=== PATIENT | male | born 1950 | race Caucasian/White ===

== ENCOUNTER 2020-05-01 01:53 | Outpatient (CLI) | payer MEDICARE, SELFPAY ==
[2020-05-01 18:35] LABS: SARS-CoV-2 RNA PCR Negative
== END 2020-05-01 01:54 | disposition home or self-care (01) ==
LOC: ANHCOVIDDT 01:53
PROVIDERS: PCP Internal Medicine; Visit Provider Internal Medicine Cardiovascular Disease
DX: Z01.812 Encounter for preprocedural laboratory examination (principal); Z20.828 Contact with and (suspected) exposure to other viral communicable diseases
CPT/HCPCS: 87635; C9803; U0003

== ENCOUNTER 2020-05-04 05:23 | Day surgery (SDC) | payer MEDICARE, SELFPAY ==
[2020-05-03 15:50] VITALS: BMI 28.1
[2020-05-04] VITALS (25 sets, daily range): BP systolic 101–163; BP diastolic 54–86; PULSE 53–69; RESP 11–19; TEMP 36.1–36.4; O2SAT 91–100; BMI 28.5
[2020-05-04 07:56] LABS: Basophils Absolute Auto 0.1 K/mm3 (0.0-0.1); Basophils Percent Auto 0.7 % (0.2-1.2); Eosinophils Absolute Auto 0.3 K/mm3 (0-0.3); Eosinophils Percent Auto 4.1 % (0-4.4); Hemoglobin 14.7 g/dL (14.0-18.0); Immature Granulocyte Absolute 0.04 K/mm3 (0.00-0.031); Immature Granulocyte Percent A 0.6 % (0-0.5); Lymphocytes Absolute Auto 2.29 K/mm3 (0.9-3.2); Lymphocytes Percent Auto 33.5 % (18.3-44.2); Mean Corpuscular HGB Conc 33.4 g/dl (32-36); Mean Corpuscular Hemoglobin 30.6 pg (26-34); Mean Corpuscular Volume 91.7 fl (80-100); Mean Platelet Volume 12.2 fl (7.4-10.4); Monocytes Absolute Auto 0.7 K/mm3 (0.1-0.6); Monocytes Percent Auto 9.5 % (2.6-8.5); Neutrophils Absolute Auto 3.5 K/mm3 (1.3-6.7); Neutrophils Percent Auto 51.6 % (45.5-73.1); Platelet Count Result 132 k/mm3 (150-375); Red Cell Distribution Width 13.1 % (11.5-14.5); White Blood Count 6.8 K/mm3 (4.5-10.0)
[2020-05-04 08:04] LABS: Prothrombin Time 13.9 Seconds (11.1-14.7)
--- NOTE | 2020-05-04 08:06 | SUR.PREOP ---
Patient arrives ambulatory to [facility] room 3 for planned LHC via radial approach with Dr. Baldwin. VSS. PIV initated by Manuel Alarcon RN- labs obtained and sent. Distal pulses assessed and as charted. Bilateral groins prepped with clippers per Manuel Alarcon RN. Patient denies pain. Consent obtained. Patient educated on procedure and verbalizes understanding. All questions answered. Will continue to closely monitor patient.
[2020-05-04 08:15] LABS: Anion Gap 7 mmol/L (8-16); Blood Urea Nitrogen 16 mg/dL (9-20); Calcium 9.1 mg/dL (8.4-10.2); Carbon Dioxide 28 mmol/L (22-30); Chloride 104 mmol/L (98-107); Estimated CRCL calculation 84 ml/min; Estimated Glomerular Filt Rate > 60; Glucose 99 mg/dL (75-110); Sodium 139 mmol/L (137-145)
--- NOTE | 2020-05-04 08:48 | WPDHPUPDATE1 ---
History and Physical Update Update Date/Time: 05/04/20 08:48 History and Physical has been reviewed, including an updated exam of the patient. There are NO changes in the patient's condition. Risks, benefits, and alternatives have been discussed and questions answered. Patient agrees to proceed with procedure.
--- NOTE | 2020-05-04 08:49 | WPDMODSED ---
Moderate Sedation Note-Pt Data Patient Data Allergies Allergy/AdvReac Type Severity Reaction Status Date / Time No Known Allergies Allergy Unverified 05/03/20 16:01 Home Medications Medication Instructions Recorded Confirmed Type aspirin 81 mg PO DAILY 05/03/20 05/03/20 History atorvastatin 80 mg PO DAILY 05/03/20 05/03/20 History cholecalciferol (vitamin D3) 25 mcg PO DAILY 05/03/20 05/03/20 History citalopram 40 mg PO DAILY 05/03/20 05/03/20 History cyanocobalamin (vitamin B-12) 2,000 mcg PO DAILY 05/03/20 05/03/20 History lisinopril 10 mg PO DAILY 05/03/20 05/03/20 History modafinil 200 mg PO QAM 05/03/20 05/03/20 History nebivolol [Bystolic] 5 mg PO DAILY 05/03/20 05/03/20 History nitroglycerin 0.4 mg SUBLINGUAL PRN PRN 05/03/20 05/03/20 History pantoprazole 40 mg PO DAILY 05/03/20 05/03/20 History zolpidem 10 mg PO HS 05/03/20 05/03/20 History Current Medications: Active Medications Sodium Chloride (Normal Saline Iv) 500 mls @ 30 mls/hr IV CONT .[id number] ONE Stop: 05/05/20 00:21 Sedation/Anesthesia: No previous sedation/anesthesia problems (including family history). PMFSH Social History Social History Years smoked: 20 Smoking status: Former smoker Tobacco type: cigarettes Second hand tobacco smoke exposure: No Smoking end date: 05/19/00 Substance use type: does not use Living arrangements: with family Gender identity (if verbalized by the patient): Male Sexual Orientation (if Verbalized by the Patient): Straight or Heterosexual Spiritual care concerns: No Mod Sed Physical Exam Physical Exam Pre Procedural Exam: Normal: Appearance, Eyes, Ears, Nose, Neck, Throat, Airway, Lungs, Heart Size, Heart Rate, Heart Rhythm, Neuro Exam, Abdomen, Liver, Kidneys, Spleen, Breasts, Genitalia, Extremities and Skin Hours since solid foods: 8 Hours since liquid intake: 8 Internal Medicine - PN: Obj Da Vital Signs Vital Signs: Vital Signs - 24 hr 05/04/20 07:45 Temperature 36.1 C L Pulse Rate 54 L Respiratory Rate 16 Blood Pressure 101/62 Pulse Oximetry 98 Meds/Results Medications: Active Medications Generic Name Dose Route Start Last Admin Trade Name Dwayne PRN Reason Stop Dose Admin Sodium Chloride 500 mls @ 30 mls/hr 05/04/20 07:42 Normal Saline Iv IV CONT 05/05/20 00:21 .[id number] ONE Labs CBC & Chem 7: 05/04/20 07:47 05/04/20 07:47 Labs: Laboratory Results - last 24 hr 05/04/20 05/04/20 05/04/20 07:47 07:47 07:47 WBC 6.8 RBC 4.80 Hgb 14.7 Hct 44.0 MCV 91.7 MCH 30.6 MCHC 33.4 RDW 13.1 Plt Count 132 L MPV 12.2 H Immature Gran % (Auto) 0.6 H Neut % (Auto) 51.6 Lymph % (Auto) 33.5 Fountain % (Auto) 9.5 H Eos % (Auto) 4.1 Baso % (Auto) 0.7 Lymph # (Auto) 2.29 Fountain # (Auto) 0.7 H Eos # (Auto) 0.3 Baso # (Auto) 0.1 Abs Immat Gran (auto) 0.04 H Absolute Neuts (auto) 3.5 Absolute Nucleated RBC 0.0 Nucleated RBC % 0.0 PT 13.9 INR 1.0 Sodium 139 Potassium 4.0 Chloride 104 Carbon Dioxide 28 Anion Gap 7 L BUN 16 Creatinine 0.70 Estim Creat Clear Calc 84 Estimated GFR > 60 Glucose 99 Calcium 9.1 ASA Classification/Sedation ASA Classification/Sedation ASA Class: I Emergent: No Risks: Risks, benefits and alternatives explained and patient/family accepted plan for sedation. Patient re-evaluated immediately prior to sedation.
--- NOTE | 2020-05-04 08:49 | WPDCARDPROC ---
Cardiac Cath Procedure Note Date of procedure:: 05/04/20 Performing physician:: Casie Baldwin MD Date of service 05/04/2020 Indication:: chest pain and abnormal stress test Brief clinical history:: this is 70old patient with past history of diabetes, hypertension, hyperlipidemia family history of CAD and lyses of persistent 2018 who started about a month ago having chest while riding his bike. Underwent stress test that shows abnormality in EKG and there was some fixed defect inferior and inferior lateral Procedure Procedure performed:: 1-Moderate sedation that started at 9:08 a.m.and ended at 1041 am using 3mg of Versed and 75mcg fentanyl. The registered nurse yesy singh 2-Selective left and right coronary angiogram. 3-Left heart catheterization with measurement of LVEDP and measurement of gradient across aortic valve. 4- deployed drug-eluting stent of 3.5 x 28 covering ostial and proximal RCA overlapping the distal stent deployment done on the nominal pressure for 20 seconds. Post dilatation using 3.5 x 15 balloon with several inflations each under 18 atmospheres for 20 seconds. 5- deployed drug-eluting stent 30.25 x 15 the junction of mid to distal RCA under normal pressure for 20 seconds. 6- right common femoral arterial angiogram. Sedation/Medication given:: Moderate sedation. Access site:: Right common femoral artery. attempted right radial approach without success to engage the RCA and therefore we switched to right femoral artery Estimated blood loss:: 10cc Procedure note:: After informed consent patient was brought in to general labor forklift operator with the was draped and prepped in usual manner. Moderate sedation was given and the right wrist was infiltrated using 1% lidocaine. Six [place] sheath obtained using modified Seldinger technique. selective left coronary angiogram was done using JL 3.5. Attempted to engage the RCA without success using JR4, Qing KHAN AL1. at that time I decided to switch to right groin. The rightgroin was infiltrated using 1% lidocaine. 6French sheath was obtained using micropuncture needle and the modified Seldinger technique. Selective right coronary angiogram was done using JR4 catheter with the tip of the catheter placed to the right coronary artery. After that 5 [place] pigtail catheter was advanced across the aortic valve into the left ventricle with measurement of LVEDP and measurement of gradient across aortic valve. Right common femoral arterial angiogram was done. subsequently guide catheter JR4 was used to engage the RCA. Upon engagement of the RCA there was dampening of blood pressure. We managed to put a wire luge. then balloon angioplasty of ostial and proximal RCA done using 3 x 15 balloon with several inflations each and the 14 HOOD for 20 seconds. Then used a balloon 3.5 x 30 mm length of the proximal and ostial lesion. Then deployed 3.5 x 28 stent covering the ostium and overlapping the distal stent under nominal pressure for 25 seconds. Postdilatation done using 3.5 x 15 noncompliant balloon each and the 18 atmospheres for 20 seconds. after that we did balloon angioplasty of the distal RCA using 3 x 15 balloon and the number of pressure for 20 seconds been deployed 3.25 by 15 Xience Shannan drug-eluting stent. Findings:: 1- left coronary artery is a large artery that divides into large LAD, medium-sized circumflex artery and medium-size ramus. Left main has 10% lesion distally 2- left anterior descending artery is a large artery that runs and wraps around the apex. has approximately a 40% lesion and the rest of the vessel minimal irregularities 3- leftcircumflex artery is a medium in size with minimal irregularities. 4- ramus intermedius is medium in size with minimal irregularities 4- right coronary artery is large artery and dominant and has ostial 80% and proximal 80% stenosis as well as distal lesion 80%. Patent stent in the mid segment with minimal InStent restenosis. 5- LVEDP was 15 mm Hgand no g
--- NOTE | 2020-05-04 12:30 | ECG_ITS ---
Measurements Intervals Pierz Rate: 57 P: 43 AR: 172 QRS: 22 QRSD: 87 T: 26 QT: 425 QTc: 414 Interpretive Statements SINUS BRADYCARDIA RSR' IN V1 OR V2, CONSIDER RIGHT VENTRICULAR HYPERTROPHY OR RIGHT VCD BORDERLINE ST-T WAVE ABNORMALITY- ANT/INF LEADS BASELINE ARTIFACT- II, III BORDERLINE ECG Electronically Signed On 05-04-2020 12:53:10 OB/GYN by Duglas Zavala D.O.
--- NOTE | 2020-05-04 21:11 | ECG_ITS ---
Measurements Intervals [place] Rate: 65 P: 47 DE: 171 QRS: 8 QRSD: 85 T: 11 QT: 407 QTc: 423 Interpretive Statements SINUS RHYTHM EARLY PRECORDIAL R/S TRANSITION ST-T WAVE ABNORMALITY IN ANTERIOR LEADS- CONSIDER ISCHEMIA BASELINE ARTIFACT- V2 ABNORMAL ECG Electronically Signed On 05-05-2020 6:40:22 BATTERY LOADER by Duglas Zavala D.O.
[2020-05-04 21:22] LABS: Glucose Point of Care 96 (65-105)
--- NOTE | 2020-05-04 21:46 | SUR.PHASEII ---
Pt. called this RN in to room at 2100 complaining of diaphoresis, nausea, lightheadedness. Pt. denies chest pain. BP obtained, noted to be 120/67. Pt. denies hx. of diabetes, noted to have finger stick blood sugar of 96. No change in heart rate or rhythm noted. EKG obtained. MD Masters with [facility] notified of acute change in pt. symptoms. Galicia removed at 1930 with pt. able to void approximately 40 ml. of urine. Per MD Masters plan to keep pt. overnight for monitoring. MD Masters also advising to bladder scan pt. and reinsert galicia if necessary. VSS at this time. Pt. remains nauseous and diaphoretic. Pt. continues to deny chest pain. Will continue to monitor pt.
--- NOTE | 2020-05-04 22:05 | SUR.PHASEII ---
Pt. noted to have bladder scan residual of 30 ml, 40ml, and 52ml. Pt. denies need to urinate at this time.
--- NOTE | 2020-05-04 23:53 | SUR.PHASEII ---
For further assessments please see PCS extended recovery.
--- NOTE | 2020-05-05 00:25 | PC.NURSE ---
For post-procedure assessments please see Phase II charting. Pt. in extended recovery following cardiac catheterization and stent placement x2. Pt. had episode of diaphoresis, nausea, lightheadedness, and extremity tremors at 2100 while sitting in recliner. Pt. denied chest pain, palpitations. HR remained consistent. EKG and blood sugar obtained. MD Masters contacted regarding episode. Pt. bladder scanned per MD Masters with no excessive residual urine noted in bladder. Pt. reported improvement in symptoms at 2140 and remains stable at this time. Per MD Masters pt. to stay overnight for monitoring. Pt. resting comfortably at this time on home CPAP. Pt. with no complaints at this time. Will continue to monitor pt.
[2020-05-05 04:00] VITALS: BP 118/92; PULSE 69; RESP 15; TEMP 36.2; O2SAT 99
[2020-05-05 08:00] VITALS: BP 104/61; PULSE 73; RESP 18; TEMP 36.6; O2SAT 98
[2020-05-05] MEDS: TICAGRELOR 90 MG TABLET PO (08:39)
--- NOTE | 2020-05-05 09:12 | PM.DS ---
DS: Admitting Diagnosis Admitting Diagnosis Admitting Diagnosis: angina DS: Discharge Diagnosis Discharge Diagnosis (1) CAD (coronary artery disease), [place] coronary artery: Code(s): I25.10 - Atherosclerotic heart disease of [place] coronary artery without angina pectoris Status: Acute DS: Summary Hospital Course Hospital Course: 70-year-old admitted for catheterization. Found to have significant CAD in the RCA status post stenting. See details above. He did fine overnight. Discharged home Time Spent with Patient Time attestation: Total time spent providing and/or coordinating discharge services: 25 minutes Patient underwent complex PCI the RCA yesterday. Initially radial approach was attempted but after coronary angiogram revealed significant RCA disease and ostial RCA, catheter had difficulty seating in ostium of the right coronary artery and so a femoral artery approach was then taken. He underwent stenting as below. Initial plan was for same day discharge but patient had difficulty urinating and a Reyes catheter needed will be placed temporarily. Soon after catheter was removed he became diaphoretic and it was decided at that point given how late it was that he would stay overnight for further observation purposes. On day of discharge feels great and wants to go home. Denies any chest pain or shortness of breath. Exam Const: General: no acute distress HENMT: General nose exam: Normal nares present Eyes: Sclera: sclerae normal Neck: Neck: no JVD Resp: Auscultation: clear to auscultation bilaterally Cardio: Rate: regular rate Rhythm: regular rhythm Other: Right groin is stable without hematoma ecchymosis or bruit. Right wrist is also stable GI: GI Palp: Yes Soft to palpation Skin: General skin exam: normal color Neuro: Sensory Exam: normal sensation Extrem: General: normal to inspection and no edema Psych: Mental Status: mental status grossly normal DS: Data Data Completed and Pending Labs on day of discharge: Labs from last 24 hours 05/04/20 21:20 POC Capillary Glucose 96 1- left coronary artery is a large artery that divides into large LAD, medium-sized circumflex artery and medium-size ramus. Left main has 10% lesion distally 2- left anterior descending artery is a large artery that runs and wraps around the apex. has approximately a 40% lesion and the rest of the vessel minimal irregularities 3- leftcircumflex artery is a medium in size with minimal irregularities. 4- ramus intermedius is medium in size with minimal irregularities 4- right coronary artery is large artery and dominant and has ostial 80% and proximal 80% stenosis as well as distal lesion 80%. Patent stent in the mid segment with minimal InStent restenosis. 5- LVEDP was 15 mm Hgand no gradient across aortic valve. 6- opening arterial pressure was 105/70 and closing pressure was 130/80. 4- deployed drug-eluting stent of 3.5 x 28 covering ostial and proximal RCA overlapping the distal stent deployment done on the nominal pressure for 20 seconds. Post dilatation using 3.5 x 15 balloon with several inflations each under 18 atmospheres for 20 seconds. 5- deployed drug-eluting stent 30.25 x 15 the junction of mid to distal RCA under normal pressure for 20 seconds. Discharge Plan Discharge Patient Disposition: Home, Self-Care Discharge Instructions: ACTIVITY: No driving until until Thursday, May 07, 2020. No lifting, pushing or pulling more than 10 pounds for 1 week. No strenuous exercise or activity (including snow shoveling or raking leaves) for 1 week May shower on May 05 but no tub baths or swimming pool for 1 week. Avoid commercial hot tubs. They are too hot. No lifting more than 5 lb with right hand for 1 week. May shower but no excessive soaking of right hand/wrist (such as washing dishes) or swimming pool for 5 days. DO NOT STOP YOUR MEDICATIONS! ONLY YOUR WOOD FLOUR MILLER CAN STOP
--- NOTE | 2020-05-05 10:16 | PC.NURSE ---
1000 - Tegaderm and dry gauze intact to right radial and right groin puncture site. No redness or Hematoma present to either site. Armboard to right wrist area. Pt instructed to keep in place as a reminder to not lift more than 5 pounds with right hand. Iv d/c'd from left forearm, catheter intact - site without redness or swelling. Discharge instructions, follow up appointment and blood draw reviewed with patient with stated understanding. Pt accompanied via wheelchair to 's car for discharge to home. Printed instructions sent with patient.
== END 2020-05-05 10:10 | disposition home or self-care (01) ==
LOC: ANHCATHLAB 15:33 → ANHCPC 05-05 09:15
PROVIDERS: PCP Internal Medicine; Visit Provider Internal Medicine Cardiovascular Disease
PROC: 4A023N7 Measurement of Cardiac Sampling and Pressure, Left Heart, Percutaneous Approach (ICD-10-PCS; CPT 93452; principal; 2020-05-04 08:30)
DX: I25.10 Atherosclerotic heart disease of native coronary artery without angina pectoris (principal); R94.39 Abnormal result of other cardiovascular function study; R07.89 Other chest pain
CPT/HCPCS: 36415; 80048; 85025; 85610; 93005; 93458; A9270; C1725; C1769; C1874; C1887; C1894; C9600; J0461; J0583; J1644; J2250; J3010; J7030; J7040

== ENCOUNTER 2024-06-04 00:19 | Day surgery (SDC) | payer MEDICARE, SELFPAY ==
[2024-06-03 16:05] VITALS: BMI 32.1
[2024-06-04] VITALS (9 sets, daily range): BP systolic 113–127; BP diastolic 54–66; PULSE 50–61; RESP 14–18; TEMP 36.5; O2SAT 95–98; BMI 31.5
--- NOTE | 2024-06-04 08:41 | WPDHPUPDATE1 ---
History and Physical Update Update Date/Time: 06/04/24 08:41 History and Physical has been reviewed, including an updated exam of the patient. There are NO changes in the patient's condition. Risks, benefits, and alternatives have been discussed and questions answered. Patient agrees to proceed with procedure.
--- NOTE | 2024-06-04 08:41 | WPDMODSED ---
Moderate Sedation Note-Pt Data Patient Data Diagnosis: Coronary artery disease Present Complaint: Coronary artery disease Procedure to be performed/Plan: Coronary angiography, left heart cath, +/- PCI Allergies Allergy/AdvReac Type Severity Reaction Status Date / Time No Known Allergies Allergy Verified 06/03/24 16:10 Home Medications ?Medication ?Instructions ?Recorded ?Confirmed ?Type aspirin 81 mg tablet 81 mg PO DAILY 05/03/20 06/04/24 History atorvastatin 80 mg tablet 80 mg PO DAILY 05/03/20 06/04/24 History cholecalciferol (vitamin D3) 25 25 mcg PO DAILY 05/03/20 06/03/24 History mcg (1,000 unit) capsule citalopram 40 mg tablet 40 mg PO DAILY 05/03/20 06/04/24 History cyanocobalamin (vitamin B-12) 2,000 mcg PO DAILY 05/03/20 06/03/24 History 1,000 mcg tablet lisinopril 10 mg tablet 10 mg PO DAILY 05/03/20 06/04/24 History modafinil 200 mg tablet 200 mg PO QAM 05/03/20 06/04/24 History nebivolol 5 mg tablet (Bystolic) 5 mg PO DAILY 05/03/20 06/04/24 History nitroglycerin 0.4 mg sublingual 0.4 mg sublingual PRN PRN Chest 05/03/20 06/03/24 History tablet Pain pantoprazole 40 mg tablet,delayed 40 mg PO DAILY 05/03/20 06/04/24 History release zolpidem 10 mg tablet 10 mg PO HS 05/03/20 06/03/24 History doxazosin 4 mg tablet (Cardura) 4 mg PO HS 06/03/24 06/03/24 History Sedation/Anesthesia: No previous sedation/anesthesia problems (including family history). [facility] Past Medical History Medical History CAD (coronary artery disease), [place] coronary artery Social History Social History Years smoked: 20 Smoking status: Former smoker Tobacco type: cigarettes Second hand tobacco smoke exposure: No Smoking end date: 08/04/00 Alcohol intake: never Substance use: never Substance use type: does not use Living arrangements: with family Gender identity (if verbalized by the patient): Male Sexual Orientation (if Verbalized by the Patient): Straight or Heterosexual Spiritual care concerns: No Mod Sed Physical Exam Physical Exam Pre Procedural Exam: Normal: Appearance, Lungs, Heart Rate, Heart Rhythm, Neuro Exam, Extremities and Skin Hours since solid foods: 12 Hours since liquid intake: 8 Mallampati Classification: class III Internal Medicine - PN: Obj Da Vital Signs Vital Signs: Vital Signs - 24 hr 06/04/24 07:42 Temperature 36.5 C Pulse Rate 60 Respiratory Rate 17 Blood Pressure 123/66 Pulse Oximetry 98 Oxygen Delivery Room Air ASA Classification/Sedation ASA Classification/Sedation ASA Class: III Emergent: No Risks: Risks, benefits and alternatives explained and patient/family accepted plan for sedation. Patient re-evaluated immediately prior to sedation.
--- NOTE | 2024-06-04 08:43 | WPDCARDPROC ---
Cardiac Cath Procedure Note Date of procedure:: 06/04/24 Performing physician:: CATHETERIZATION LABORATORY REPORT Procedure Date: 06/04/2024 Director Staffing: Diane Salazar M.D., [facility]? Referring Physician: Kj Reaves M.D. Anesthesia: Versed and Fentanyl were ordered and given in my presence at 08:52, procedure ended at 09:13. Supervision of nurse monitored moderate sedation with Versed and Fentanyl was provided for 21 minutes. Total of Versed 1mg and Fentanyl 50mcg were administered by the Top Loader RN Edvin Ryan. Pre-op Diagnosis: Coronary artery disease Post-op Diagnosis: 1. Moderate 50% stenosis in the mid LAD 2. There are stents from the ostial to the distal RCA. The proximal RCA has a moderate 50% in-stent restenosis. Mild in-stent restenosis in the upper mid portion. There is an 80% in-stent restenosis in the mid portion. 3. Left ventricular end-diastolic pressure of 17mmHg Procedure(s): 1. Moderate sedation 2. Ultrasound-guided access of the right common femoral artery 3. Coronary angiography 4. Left heart cath Access Site: Right common femoral artery Brief History and Clinical Indications: Patient is a 74 year old male with CAD s/p multiple stents who is referred for [facility] for abnormal stress test. All risks, benefits and alternatives to left heart catheterization with or without percutaneous coronary intervention was discussed at length with the patient. Risk of complications including but not limited to bleeding, infection, arrhythmia, stroke, worsening kidney function, blood loss, groin hematoma, limb loss, emergency coronary artery bypass grafting, and even were discussed with the patient and all questions were answered. The patient understood and wished to proceed. Time out called, patient name, date of , medical record number, allergies, procedure performed, identify Director Staffing, patient and staff member concurred with accurate data, procedure carried on. Findings: LEFT HEART CATHETERIZATION FINDINGS: 1. Left main: The left main coronary artery is widely patent without any significant obstructive disease. 2. Left anterior descending: Calcifications in the mid LAD. There is a focal 50% stenosis in the mid LAD. Remainder of the LAD has luminal irregularities. 3. Ramus: Luminal irregularities. 4. Left circumflex: The left circumflex artery and the main marginal branches have luminal irregularities without any significant obstructive angiographic disease. The LCX and OM branch are small caliber vessels. 5. Right coronary artery: The RCA is the dominant vessel. There are stents from the ostial to the distal RCA. The proximal RCA has a moderate 50% in-stent restenosis. Mild in-stent restenosis in the upper mid portion. Distal to this, there is an 80% in-stent restenosis. 6. Left ventricle: A. End-diastolic pressure 17 mmHg. B. LV gram deferred. C. No significant gradient across aortic valve on catheter pullback. Description of Procedure: Informed consent signed and placed in the chart. Patient transferred to senior cytogenetics laboratory director room. Prepped and draped in usual sterile fashion. 2% lidocaine in right groin area. Micropuncture needle used to access right common femoral artery with Seldinger technique under fluoroscopic and ultrasound guidance. J wire advanced, micropuncture cannula placed. Right iliofemoral angiogram performed, access confirmed and micropuncture cannula exchanged for 5-FR sheath. 5F FL 4 diagnostic catheter engaged Left Main Coronary Artery. 5F FR 3.5 diagnostic catheter engaged Right Coronary Artery. Multiple orthogonal angiogram obtained and reviewed 5F FR 3.5 diagnostic catheter crossed aortic valve to obtain LVEDP, LV angiogram deferred. Hemostasis was achieved by 6F Angioseal. Disposition: Home Plan: The patient will be monitored in the recovery area. The above findings were discussed with the referring physician. Continue aggressive medical therapy and risk factor modification. ? Diane Salazar M.D. Interventional Cardiology
== END 2024-06-04 12:15 | disposition home or self-care (01) ==
PROVIDERS: PCP Family Medicine; Visit Provider Internal Medicine
PROC: 4A023N7 Measurement of Cardiac Sampling and Pressure, Left Heart, Percutaneous Approach (ICD-10-PCS; CPT 93452; principal; 2024-06-04 08:30)
DX: I25.10 Atherosclerotic heart disease of native coronary artery without angina pectoris (principal); Z79.82 Long term (current) use of aspirin; Z87.891 Personal history of nicotine dependence
CPT/HCPCS: 93458; C1760; C1887; C1894; G0269; J1644; J2003; J2250; J2305; J3010; J7040

== ENCOUNTER 2024-06-04 07:07 | Outpatient (CLI) | payer MEDICARE, SELFPAY ==
[2024-06-04 07:41] LABS: Basophils Absolute Auto 0.1 K/mm3 (0.0-0.1); Basophils Percent Auto 0.9 % (0.2-1.2); Eosinophils Absolute Auto 0.2 K/mm3 (0-0.3); Eosinophils Percent Auto 2.8 % (0-4.4); Hematocrit 41.7 % (42.0-52.0); Hemoglobin 13.6 g/dL (14.0-18.0); Immature Granulocyte Absolute 0.04 K/mm3 (0.00-0.031); Immature Granulocyte Percent A 0.5 % (0-0.5); Lymphocytes Absolute Auto 1.92 K/mm3 (0.9-3.2); Lymphocytes Percent Auto 25.7 % (18.3-44.2); Mean Corpuscular HGB Conc 32.6 g/dl (32-36); Mean Corpuscular Hemoglobin 30.6 pg (26-34); Mean Corpuscular Volume 93.9 fl (80-100); Mean Platelet Volume 12.3 fl (7.4-10.4); Monocytes Absolute Auto 0.6 K/mm3 (0.1-0.6); Monocytes Percent Auto 8.3 % (2.6-8.5); Neutrophils Absolute Auto 4.6 K/mm3 (1.3-6.7); Neutrophils Percent Auto 61.8 % (45.5-73.1); Platelet Count Result 127 k/mm3 (150-375); Red Blood Count 4.44 M/mm3 (4.6-6.20); Red Cell Distribution Width 12.7 % (11.5-14.5); White Blood Count 7.5 K/mm3 (4.5-10.0)
[2024-06-04 08:00] LABS: Alanine Aminotransferase 22 U/L (6-50); Albumin Level 3.9 g/dL (3.5-5.1); Alkaline Phosphatase 45 U/L (38-126); Anion Gap 4 mmol/L (4-12); Aspartate Amino Transferase 22 U/L (17-59); Bilirubin,Total 1.2 mg/dL (0.2-1.3); Blood Urea Nitrogen 13 mg/dL (9-20); Carbon Dioxide 31 mmol/L (22-30); Chloride 103 mmol/L (98-107); Cholesterol 121 mg/dL (0-200); Estimated Glomerular Filt Rate > 60; Glucose 89 mg/dL (65-110); HDL Direct 45 mg/dL; Potassium 4.2 mmol/L (3.4-5.0); Sodium 138 mmol/L (137-145); Triglycerides 66 mg/dL (<150)
[2024-06-04 08:10] LABS: LDL Cholesterol Direct 62 mg/dL
--- OUTSIDE RECORDS SUMMARY | 2024-06-10 05:02 | XMS_ITS | Clinical Summary ---
Author Organization [facility] Address [address] [place] [address] Care Team Providers Care Email Production Specialist Name Role Phone Finesse Juares MD Primary Care Provider [phone] Allergies No known active allergies Medications cholecalciferol (VITAMIN D3) 1,000 unit capsule 1 po q day 0 0 5 Active cyanocobalamin (vitamin B-12) 1,000 mcg tablet take 2 Tablet by Oral route once daily 0 0 5 Active aspirin (ASPIR-81) 81 mg tablet take 1 tablet by oral route every day 0 0 5 Active atorvastatin (LIPITOR) 80 mg tabletIndicatio ns:Dyslipidemia TAKE 1 TABLET (80 MG TOTAL) BY MOUTH DAILY 90 tablet 3 4 Active lisinopriL (PRINIVIL,ZESTR [place]) 10 mg tabletIndicatio ns:Coronary artery disease 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 (HCC) TAKE 1 TABLET (10 MG TOTAL) BY MOUTH DAILY 90 tablet 3 4 Active doxazosin (CARDURA) 4 mg tablet Take 1 tablet (4 mg total) by mouth nightly 90 tablet 1 4 11/25/19 25 Active modafiniL (PROVIGIL) 200 mg tablet TAKE ONE (1) TABLET (200 MG TOTAL) BY MOUTH DAILY 30 tablet 5 4 Active zolpidem (AMBIEN) 10 mg tablet TAKE ONE (1) TABLET (10 MG TOTAL) BY MOUTH NIGHTLY 30 tablet 5 4 Active nebivoloL (BYSTOLIC) 5 mg tablet TAKE 1 TABLET (5 MG TOTAL) BY MOUTH DAILY 90 tablet 1 4 Active tamsulosin (FLOMAX) 0.4 mg extended release capsule Take 1 capsule (0.4 mg total) by mouth daily 90 capsule 3 5 06/01/[address] (PROTONIX) 40 mg EC tablet Take 1 tablet (40 mg total) by mouth daily 100 tablet 1 5 Active nitroglycerin (NITROSTAT) 0.[address] 1 tablet (0.4 mg total) under the tongue every 5 (five) minutes as needed for chest pain Maximum 3 doses. . 25 tablet 5 06/01/19 26 Active citalopram (CeleXA) 40 mg tablet Take one tablet by mouth daily 90 tablet 3 5 Active nitroglycerin (NITROSTAT) 0.[address] 1 tablet (0.4 mg total) under the tongue every 5 (five) minutes as needed for chest pain Maximum 3 doses. . 25 tablet 9 06/01/19 25 Discontinu ed(Reorder ) citalopram (CeleXA) 40 mg tablet Take one tablet by mouth daily 90 tablet 3 4 06/01/19 25 Discontinu ed(Reorder ) tamsulosin (FLOMAX) 0.4 mg extended release capsule TAKE 1 CAPSULE (0.4 MG TOTAL) BY MOUTH DAILY 90 capsule 3 4 06/01/19 25 Discontinu ed(Reorder ) pantoprazole DR (PROTONIX) 40 mg EC tablet TAKE ONE (1) TABLET (40 MG TOTAL) BY MOUTH DAILY 100 tablet 1 4 06/01/19 25 Discontinu ed(Reorder ) Active Problems Problem Noted Date Diagnosed Date BMI 31.0-31.9,adult 06/01/2024 Assessment & Plan (06/01/2024 10:15 AM BULK MAIL CLERK): Encourage helathy food chocies and target 150min/week aerobic exeicse. Obesity (BMI 30.0-34.9) 06/01/2024 Assessment & Plan (06/01/2024 10:15 AM BULK MAIL CLERK): As above. Mixed hyperlipidemia 06/01/2024 Assessment & Plan (06/01/2024 10:15 AM BULK MAIL CLERK): Stable on statin therpay and will continue to follow repsonse. Hypertension, essential 06/01/2024 Assessment & Plan (06/01/2024 10:16 AM BULK MAIL CLERK): WIll follow response. NO change, no side effectds to medication. Biceps tendinitis of right upper extremity 05/13 Assessment & Plan (05/13/2023 10:53 AM BULK MAIL CLERK): Rest ice stretching exercises demonstrated. Call back for physical therapy or orthopedic referral if no improvement. Personal history of colonic polyps 02/13/2023 Left carotid bruit 04/29/2022 Fatigue 04/22/2022 Assessment & Plan (04/22/2022 6:27 PM BULK MAIL CLERK): Sleep apnea currently being treated. Mood stable per his report. TSH has been normal in the past. Repeat testosterone level. Had too many side effects on previous testosterone replacement. May be willing to try again due to fatigue. Check CBC before next visit. Decrease both citalopram and Bystolic to see if has improvement Urinary frequency 10/19/2021 Assessment & Plan (04/22/2022 6:25 PM BULK MAIL CLERK): Improved with tamsulosin. Assessment & Plan (10/19/2021 11:59 AM CDT): Start tamsulosin and warned of potential aggravation of orthostasis. Call back if this occurs or if no improvement. Consider Myrbetriq next time for overactive bladder. SCC (squamous cell carcinoma), hand, left 2021 Overview (06/06/2021): Added automatically from request for surgery [id number] Skin lesion 04/18/2021 Assessment & Plan (04/18/2021 11:32 AM BULK MAIL CLERK): Probably represents malignancy and have recommended plastic surgery referral for excision. Sensation of feeling cold 04/17/2021 Thrombocytopenia 10/18/2020 Assessment & Plan (10/22/2022 11:35 AM CDT): Asymptomatic, check again one year. Assessment & Plan (10/19/2021 11:59 AM CDT): Mild chronic stable and asymptomatic. Check again 1 year. Assessment & Plan (11/12/2020 5:33 PM CDT): Mild and asymptomatic will check levels once or twice yearly. Abnormal ankle brachial index (HARDEEP) 06/21/2020 Assessment & Plan (06/21/2020 12:12 PM BULK MAIL CLERK): He has a history of coronary artery disease and an abnormal examination of his left lower extremity, therefore requires formal HARDEEP testing at [facility] and should call back for results. If moderate to severe disease present, would recommend CT angiogram and then management per his chief dietitian. If mild to normal findings, would recommend simple observation and continuation of his current medication regimen. Lightheaded 12/08/2018 BMI 32.0-32.9,adult 08/11/2018 Assessment & Plan (08/11/2018 10:20 PM CDT): Patient is encouraged to lose weight with a combination of caloric reduction and increased exercise. Healthcare maintenance 08/07/2018 Assessment & Plan (10/22/2022 5:17 PM CDT): Flu shot each February. Tetanus booster every 10 years. Shingrix completed. Prevnar 13/Pneumovax 23 completed. PSA yearly. Colonoscopy due and ordered. Assessment & Plan (10/19/2021 12:00 PM CDT): Flu shot each February. Tetanus booster every 10 years. COVID booster recommended. Pneumovax completed. Shingrix completed. PSA yearly. Colonoscopy due and ordered. Will see him back in 6 months with lab sooner if needed. Assessment & Plan (08/11/2018 10:19 PM CDT): We discussed a comprehensive list of medical conditions and proposed recommendations for each. We discussed the importance of increased exercise, fall prevention, proper nutrition, and suggested joining [facility] to accomplish most of these goals. Patient was given an age appropriate Medicare preventive services checklist. Please see the EMR regarding details of their health risk assessment and preventive services checklist. Will see him back in 1 year for with wellness visit fasting lab sooner if needed. Closed displaced fracture of lateral malleolus of left fibula 04/17/2018 Overview (04/17/2018): Added automatically from request for surgery [id number] Closed displaced fracture of medial malleolus of left tibia 04/17/2018 Overview (04/17/2018): Added automatically from request for surgery [id number] Coronary artery disease of n ative artery of [place] heart with stable angina pectoris 01/07/2018 Overview (06/21/2020): RCA MAT 12/2017 RCA MAT x2 April 2020 Assessment & Plan (06/01/2024 10:12 AM BULK MAIL CLERK): COntinues on secondary prevneiton. Newly positive stress test with minimal symptoms. Upcoming cardiac cath. Assessment & Plan (05/13/2023 10:52 AM BULK MAIL CLERK): Continue nebivolol, lisinopril, atorvastatin, aspirin follow up with Cardiology as they direct Assessment & Plan (10/22/2022 5:16 PM CDT): Continue his nebivolol, lisinopril, atorvastatin, aspirin follow-up with Cardiology as they direct. Assessment & Plan (10/19/2021 11:59 AM CDT): Continue current medication regimen follow up with chief dietitian as they direct. Assessment & Plan (11/12/2020 5:33 PM CDT): Continue current medication regimen and follow-up with his chief dietitian as they direct. Assessment & Plan (06/21/2020 12:10 PM BULK MAIL CLERK): Continues aspirin, atorvastatin, Brilinta, Bystolic and follow up with chief dietitian as he directs. Certainly is coronary artery disease makes him more likely and at risk of having lower extremity peripheral arterial disease and warrants further workup despite him being asymptomatic. Assessment & Plan (10/14/2019 11:17 AM CDT): Continue Brilinta lisinopril Bystolic atorvastatin aspirin and follow up with chief dietitian as they direct. Assessment & Plan (08/11/2018 10:19 PM CDT): Continue Brilinta, lisinopril, Bystolic, atorvastatin, aspirin follow up with chief dietitian as he directs. Family history of premature coronary artery dise ase 12/17/2017 Former smoker 12/17/2017 Essential hypertension 12/17/2017 Positive cardiac stress test 12/17/2017 Assessment & Plan (06/01/2024 10:14 AM BULK MAIL CLERK): Upcoming stress test. WIll follow reposnse. Obstructive sleep apnea 01/30/2015 Overview (04/22/2022): BIPAP Assessment & Plan (06/01/2024 10:14 AM BULK MAIL CLERK): Continue f/u with Dr. Dunham and will montior response. Assessment & Plan (05/13/2023 10:52 AM BULK MAIL CLERK): Well controlled on BiPAP and follow up with his sleep medicine specialist as they direct Assessment & Plan (04/22/2022 6:25 PM BULK MAIL CLERK): Continue BiPAP and follow-up with his sleep medicine specialist as they direct. Assessment & Plan (10/19/2021 11:59 AM CDT): Patient is compliant with the CPAP machine and gets symptomatic relief. Assessment & Plan (11/12/2020 5:32 PM CDT): Patient is compliant with the CPAP machine and gets symptomatic relief. Assessment & Plan (10/14/2019 11:17 AM CDT): Patient is compliant with the CPAP machine and gets symptomatic relief. Assessment & Plan (08/11/2018 10:17 PM CDT): Patient is compliant with the CPAP machine and gets symptomatic relief. Assessment & Plan (08/17/2017 10:53 PM CDT): Patient is compliant with the CPAP machine and gets symptomatic relief. Assessment & Plan (03/12/2017 10:45 AM CDT): Continue CPAP therapy. Continue Provigil per Dr. Dunham's recommendations. Follow- up with him for discussion of possible repeat sleep study and alternative therapies such as BiPAP if needed. Cobalamin deficiency 07/19/2014 Overview (08/23/2016): Vitamin B12 deficiency Assessment & Plan (05/13/2023 10:52 AM BULK MAIL CLERK): Continue supplementation check levels yearly. Assessment & Plan (10/22/2022 5:15 PM CDT): B12 supplementation check level in 1 year. Assessment & Plan (10/19/2021 11:59 AM CDT): Continue supplementation check level in 1 year. Assessment & Plan (11/12/2020 5:33 PM CDT): Continue B12 supplementation and check levels yearly. Assessment & Plan (10/14/2019 11:17 AM CDT): Continue B12 supplementation and check level before next visit. Assessment & Plan (08/17/2017 10:53 PM CDT): Continue supplementation and check levels before next visit Vitamin D deficiency 07/19/2014 Overview (08/23/2016): Vitamin D deficiency Assessment & Plan (10/19/2021 11:59 AM CDT): Continue current supplementation and check level in 1 year. Assessment & Plan (11/12/2020 5:33 PM CDT): Continue current supplementation and check level in 1 year. Assessment & Plan (10/14/2019 11:17 AM CDT): Continue current supplementation and check level in 1 year. Assessment & Plan (08/11/2018 10:17 PM CDT): Continue current supplementation and check level in 1 year. Assessment & Plan (08/17/2017 10:53 PM CDT): Continue current supplementation and check level in 1 year. Impaired fasting glucose 10/02/2013 Overview (08/21/2016): IMPAIRED FASTING GLUCOSE Assessment & Plan (10/22/2022 5:16 PM CDT): Patient should reduce sugar and carbs, increase exercise, maintain proper body weight, and will check an A1c once or twice yearly. Assessment & Plan (04/22/2022 6:25 PM BULK MAIL CLERK): Patient should reduce sugar and carbs, increase exercise, maintain proper body weight, and will check an A1c once or twice yearly. Assessment & Plan (10/19/2021 11:57 AM CDT): Patient should reduce sugar and carbs, increase exercise, maintain proper body weight, and will check an A1c once or twice yearly. Assessment & Plan (11/12/2020 5:32 PM CDT): Patient should reduce sugar and carbs, increase exercise, maintain proper body weight, and will check an A1c once or twice yearly. Assessment & Plan (10/14/2019 11:17 AM CDT): Patient should reduce sugar and carbs, increase exercise, maintain proper body weight, and will check an A1c once or twice yearly. Assessment & Plan (08/11/2018 10:17 PM CDT): Patient should reduce sugar and carbs, increase exercise, maintain proper body weight, and will check an A1c once or twice yearly. Assessment & Plan (08/17/2017 10:51 PM CDT): Patient should reduce sugar and carbs, increase exercise, maintain proper body weight, and will check an A1c once or twice yearly. Major depressive disorder 10/02/2013 Overview (08/17/2017): Poor reaction to effexor and paxil. Assessment & Plan (06/01/2024 10:13 AM BULK MAIL CLERK): Continues on citalporam and will follow response. Assessment & Plan (04/22/2022 6:25 PM BULK MAIL CLERK): Stable on citalopram but will try decreasing to half tablet for a month to see if it helps with fatigue. He can decrease to every other day feels improved. Assessment & Plan (10/14/2019 11:17 AM CDT): Stable on citalopram. Call back if worsens for addition of Wellbutrin. Assessment & Plan (08/11/2018 10:17 PM CDT): Stable on citalopram. Assessment & Plan (08/17/2017 10:52 PM CDT): Well controlled on citalopram. Benign hypertension 10/02/2013 Overview (03/12/2017): Did not tolerate Doxazosin. Avoiding spironolactone due to testicular hypofunction. Assessment & Plan (05/13/2023 10:51 AM BULK MAIL CLERK): Well controlled on lisinopril nebivolol Assessment & Plan (10/22/2022 5:15 PM CDT): Blood pressure well controlled on lisinopril nebivolol Assessment & Plan (04/22/2022 6:26 PM BULK MAIL CLERK): Blood pressure on the lower side of normal and with his fatigue will try decreasing his Bystolic to half tablet daily for a month and call back with results. May discontinue altogether blood pressure remains well controlled and feels improved on lower dose. Assessment & Plan (10/19/2021 11:58 AM CDT): Well controlled on the current regimen. Avoidance of salt, proper body weight, and routine exercise recommended. Assessment & Plan (04/18/2021 11:31 AM BULK MAIL CLERK): Well controlled on the current regimen. Avoidance of salt, proper body weight, and routine exercise recommended. Assessment & Plan (11/12/2020 5:32 PM CDT): Well controlled on the current regimen. Avoidance of salt, proper body weight, and routine exercise recommended. Assessment & Plan (06/21/2020 12:11 PM BULK MAIL CLERK): Well controlled on the current regimen. Avoidance of salt, proper body weight, and routine exercise recommended. Assessment & Plan (10/14/2019 11:18 AM CDT): Well controlled on the current regimen. Avoidance of salt, proper body weight, and routine exercise recommended. Assessment & Plan (08/11/2018 10:19 PM CDT): Well controlled on the current regimen. Avoidance of salt, proper body weight, and routine exercise recommended. Assessment & Plan (08/17/2017 10:52 PM CDT): Well controlled on the current regimen. Avoidance of salt, proper body weight, and routine exercise recommended. Assessment & Plan (03/12/2017 10:48 AM CDT): Blood pressure currently well controlled. We are hoping for more weight loss. Let us try decreasing his Bystolic to half a tablet in a month or 2. This will decrease his costs. At next scheduled appointment in July 2017, if the blood pressure is very well controlled on 2.5 mg daily, we can consider stopping altogether. Would avoid other beta-blockers with his chronic fatigue but his finances may dictate otherwise. Has failed doxazosin due to side effects. Avoiding spironolactone due to testicular hypofunction. Hyperlipidemia LDL goal <70 10/02/2013 Overview (08/21/2016): MIXED HYPERLIPIDEMIA Assessment & Plan (05/13/2023 10:52 AM BULK MAIL CLERK): Well controlled on current therapy and will check a lipid panel and LFTs in 6 months. Assessment & Plan (10/22/2022 5:16 PM CDT): Continue Atorvastatin diet exercise. Assessment & Plan (04/22/2022 6:25 PM BULK MAIL CLERK): Well controlled on current therapy and will check a lipid panel and LFTs in 6 months. Assessment & Plan (10/19/2021 11:59 AM CDT): Well controlled on current therapy and will check a lipid panel and LFTs in 6 months. Assessment & Plan (11/12/2020 5:32 PM CDT): Well controlled on current therapy and will check a lipid panel and LFTs in 6 months. Assessment & Plan (10/14/2019 11:17 AM CDT): Well controlled on current therapy and will check a lipid panel and LFTs in 12 months. Assessment & Plan (08/11/2018 10:18 PM CDT): Well controlled on current therapy and will check a lipid panel and LFTs in 12 months. Assessment & Plan (08/17/2017 10:53 PM CDT): Well controlled on current therapy and will check a lipid panel and LFTs in 12 months. Testicular hypofunction 10/02/2013 Overview (08/17/2017): No response to treatment thus forgoing replacement. Gastroesophageal reflux disease 10/02/2013 Overview (08/04/2017): Failed ranitidine Assessment & Plan (08/11/2018 10:18 PM CDT): Continue current PPI and the patient is aware of the long-term risks posed by chronic PPI usage. Magnesium level will be checked periodically. Calcium supplementation recommended. Assessment & Plan (08/17/2017 10:54 PM CDT): Continue current PPI and the patient is aware of the long-term risks posed by chronic PPI usage. Magnesium level will be checked periodically. Calcium supplementation recommended. Rosacea 07/06/2013 Overview (08/24/2016): Rosacea Anxiety 07/06/2013 Overview (08/17/2017): Poor reaction to effexor and paxil. Assessment & Plan (08/17/2017 10:53 PM CDT): Well controlled on citalopram. Male erectile disorder 03/31/2012 Overview (08/24/2016): Erectile dysfunction Insomnia 11/11/2011 Overview (08/21/2016): Insomnia Assessment & Plan (10/19/2021 11:58 AM CDT): Well controlled on Ambien and melatonin. Assessment & Plan (08/17/2017 10:52 PM CDT): Well controlled on Ambien and melatonin. Resolved Problems Problem Noted Date Diagnosed Date Resolved Date Burning chest pain 03/13/2020 Medicare annual wellness visit, subsequent 10/14/2019 10/19/2021 Assessment & Plan (11/12/2020 5:34 PM CDT): We discussed a comprehensive list of medical conditions and proposed recommendations for each. We discussed the importance of increased exercise, fall prevention, proper nutrition, and suggested joining [facility] to accomplish most of these goals. Patient was given an age appropriate Medicare preventive services checklist. Please see the EMR regarding details of their health risk assessment and preventive services checklist. We will see him back in 1 year with labs indicated. Assessment & Plan (10/14/2019 11:18 AM CDT): We discussed a comprehensive list of medical conditions and proposed recommendations for each. We discussed the importance of increased exercise, fall prevention, proper nutrition, and suggested joining [facility] to accomplish most of these goals. Patient was given an age appropriate Medicare preventive services checklist. Please see the EMR regarding details of their health risk assessment and preventive services checklist. Will see him back in 1 year for wellness visit fasting lab sooner if needed. Welcome to Medicare preventive visit 08/04/2017 08/07/2018 Assessment & Plan (08/17/2017 10:55 PM CDT): We discussed a comprehensive list of medical conditions and proposed recommendations for each. We discussed the importance of increased exercise, fall prevention, proper nutrition, and suggested joining [facility] to accomplish most of these goals. Patient was given an age appropriate Medicare preventive services checklist. Please see the EMR regarding details of their health risk assessment and preventive services checklist. Will see him back in 1 year with fasting lab sooner if needed. At low risk for fall 08/04/2017 022 Assessment & Plan (11/12/2020 5:33 PM CDT): Timed get up and go test normal. Assessment & Plan (08/11/2018 10:20 PM CDT): Timed get up and go test normal. Assessment & Plan (08/17/2017 10:55 PM CDT): Timed get up and go test normal. Obstructive sleep apnea syndrome in adult 08/01/2011 03/12/2017 Overview (08/24/2016): Obstructive sleep apnea syndrome in adult Hypersomnia 08/01/2011 10/19/2021 Overview (08/24/2016): Hypersomnia Adiposity 08/01/2011 03/12/2017 Overview (08/24/2016): Obesity Encounters Date Type Department Care Team Description 06/04/2024 Orders Only [facility] Health Information Management [address] [place] [address] Kassie Reaves MD 06/04/2024 Orders Only [facility] [address] [id number] Finesse Juares MD 06/04/2024 Telephone [facility] Primary Care at [address] [phone] Mary Rehman MA 06/01/2024 9:45 AM BULK MAIL CLERK Office Visit [facility] Primary Care at [address] [phone] Finesse Juares MD Hypertension, essential (Primary Dx); Mixed hyperlipidemia; Coronary artery disease 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 (HCC); Recurrent major depressive disorder, in full remission (CMS/HCC) (HCC); Positive cardiac stress test; Obstructive sleep apnea; BMI 31.0-31.9,adult; Obesity (BMI 30.0-34.9) 05/28/2024 Telephone [facility] Cardiology [address] [facility] [address] [place] [phone] Kassie Reaves MD 05/27/2024 9:15 AM BULK MAIL CLERK Ancillary Procedure [facility] Cardiology [address] [facility] [address] [place] [address] Coronary artery disease 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 (HCC) 04/13/2024 10:30 AM BULK MAIL CLERK Office Visit [facility] Sports Medicine and Primary Care at [address] [place] [address] Stefan Obrien DO Osteoarthritis of right shoulder, unspecified osteoarthritis type (Primary Dx); Nontraumatic incomplete tear of right rotator cuff 04/09/2024 Telephone [facility] Sports Medicine and Primary Care at [address] [phone] Yuridia Ortiz MA Test Results 04/08/2024 12:40 PM BULK MAIL CLERK - 04/08/2024 11:59 PM BULK MAIL CLERK Hospital Encounter [facility] [address] [place] [address] Acute pain of right shoulder; Tendinitis of upper biceps tendon of right shoulder Discharge Disposition: Discharge to home or self care 03/30/2024 1:30 PM BULK MAIL CLERK Office Visit [facility] Cardiology at [address] [phone] Kassie Reaves MD Coronary artery disease 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 (HCC) (Primary Dx); Hyperlipidemia LDL goal <70; Essential hypertension; Obstructive sleep apnea 03/22/2024 11:45 AM BULK MAIL CLERK Office Visit [facility] Sports Medicine and Primary Care at [address] [phone] Stefan Obrien DO Acute pain of right shoulder (Primary Dx); Tendinitis of upper biceps tendon of right shoulder 03/22/2024 Telephone [facility] Sports Medicine and Primary Care at [address] [phone] Stefan Obrien DO from Last 3 Months Immunizations Name Administration Dates Next Due COVID-19 MRNA (MODERNA) .5 M L (50 MCG) VACCINE (12 YEARS AND UP) 03/13/2023 Influenza, Quadrivalent, Hig h Dose, Preservative Free, Intrr 03/13/2023 Influenza, Quadrivalent, Spl it, Preservative Free, Intradermal 03/14/2016,03/15/2015 Influenza, Quadrivalent, Spl it, Preservative Free, Intramuscular 02/26/2019 Influenza, Split 03/17/2012,03/28/2011 Influenza, Trivalent, Adjuva nted, Intramuscular 03/04/2018 Influenza, Trivalent, IM (MDV) 02/16/2013 Influenza, Trivalent, Recomb inant, Egg Free, Preservative Free, Antibiotic Free, IM (FLUBLOK) 03/03/2014 Influenza, Unspecified 03/11/2024,2022,03/02/2022,02/16,03/19/2020,03/05/2018,02/21/2017 Pfizer SARS-CoV-2 Monovalent Vaccination (12+ Yrs) PURPLE 08/10/2020,07/20/2020 Pneumococcal Conjugate PCV 13 08/04/2017 Pneumococcal Polysaccharide PPV23 08/07/2018,04/2007 Td, adsorbed 05/19/2001,05/19/1999 Tdap 09/27/2011 ZOSTER LIVE 12/28/2014 ZOSTER Recombinant 04/29/2019,02/26/2019 Surgical History Surgery Date Site/Laterality Comments OTHER SURGICAL HISTORY 05/19/1989 - 05/18/1990 Bilateral B Carpal tunnel release CHOLECYSTECTOMY 05/19/1989 - 05/18/1990 Cholecystectomy OTHER SURGICAL HISTORY Sleep med: Dr Dunham OTHER SURGICAL HISTORY THEO: Auto BIPAP CARDIAC CATHETERIZATION 05/19/2017 - 05/18/2018 with a total of 3 stents ANKLE FRACTURE SURGERY Left ANGIOPLASTY 12/22/2017 04/27/2020 FRACTURE SURGERY 04/20/2018 SKIN CANCER EXCISION 06/19/2021 COLONOSCOPY 10/17/2016 - 11/15/2016 COLONOSCOPY 04/15/2023 Medical History Medical History Date Comments Hx Other Medical 2002 HTN Anxiety disorder anxiety Hx Other Medical ED Hx Other Medical Impaired fastin g glucose Gastroesophageal reflux disease GERD Hyperlipidemia Hyperlipidemia Hx Other Medical Sleep med Hx Other Medical THEO Sleep apnea CPAP it for my ; last sleep study sprin 2011 Hypertension Coronary artery disease Ankle fracture Left 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 Heart disease 2018 Family History Medical History Relation Name Comments Diabetes Brothdamon Spann COPD Father Milton Sr Cancer Father Milton Sr Cancer; Early Father Milton Sr Heart attack Father Milton Sr Hypertension Father Milton Sr Hypertension; Lymphoma Father Milton Sr Cancer -lymphom a; Other Father Milton Sr Alive and well; /CAD CABG/Stents; [place] at 42; Prostate cancer Father Milton Sr Cancer -pros rhodes; Cancer Mother Sherice Cancer; Coronary artery disease Mother Sherice Mary nary artery disease; Cause of : Coronary artery disease Diabetes Mother Sherice Diabetes type II Mother Sherice Diabetes -T ype 2; Heart attack Mother Sherice Heart disease Mother Sherice Lung cancer Mother Sherice Cancer -lung; Relation Name Status Comments Brother Zana Father Milton Sr Alive Mother Sherice Alive Social History Tobacco Use Types Packs/Day Years Used Date Smoking Tobacco: Former Cigarettes 1 20.7 0 11/17/1979 - 08/04/2000 Smokeless Tobacco: Never Tobacco Cessation:Counseling Given: Not Answered Alcohol Use Standard Drinks/Week Comments No 0 (1 standard drink = 0.6 oz pur e alcohol) AUDIT-C Answer Date Recorded Frequency of Alcohol Consumption Not on file 04/14/2023 Q2: How many drinks containi ng alcohol do you have on a typical day when you are drinking? Patient does not drink Frequency of Binge Drinking Not on file 03/20 PHQ-2 Answer Date Recorded PHQ-2 Total Score (If total score is 3 or more points, staff should administer the PHQ-9) 0 06/01/2024 Personal Safety Answer Date Recorded Have you ever been in or are you currently in a harmful physical or emotional relationship or is someone making you feel afraid or unsafe? Denies 05/10/2023 Sex and Gender Information Value Date Recorded Sex Assigned at Not on file Legal Sex Male 4:42 PM BULK MAIL CLERK Gender Identity Male 06/11/2021 9:12 AM BULK MAIL CLERK Sexual Orientation Not on file Obstetrics History Last Filed Vital Signs Vital Sign Reading Time Taken Comments Blood Pressure 122/68 06/01/2024 9:42 AM BULK MAIL CLERK Pulse 74 06/01/2024 9:42 AM BULK MAIL CLERK Temperature 36.7 ??C (98.1 ??F) 06/01/2024 9:42 AM CS T Respiratory Rate 16 04/13/2024 10:3 4 AM BULK MAIL CLERK Oxygen Saturation 98% 06/01/2024 9:42 AM BULK MAIL CLERK Inhaled Oxygen Concentration - - Weight 95.2 kg (209 lb 14.4 oz) 06/01/2024 9:42 AM BULK MAIL CLERK Height 172.7 cm (5' 8 ) 06/01/2024 9:42 AM BULK MAIL CLERK Body Mass Index 31.92 06/01/2024 9:42 AM BULK MAIL CLERK Plan of Treatment Health Maintenance Due Date Last Done Comments Hepatitis B Screening 02/02/1970 DTaP/Tdap/Td Vaccine (2 - Td or Tdap) 09/26/2021 09/27/2011, 05/19/2001, 05/19/1999 Well Visit 65+ 10/23/2023 10/22/2022, 06/0 07/2021, 10/18/2020, Additional history exists Covid-19 Vaccine (2023-06 5 season) 2024 03/13/2023, 04/03/2022, 12/12/2021, Additional history exists Prostate Cancer Screening-PSA 11/17/2024, 10/15/2022, 10/11/2021, Additional history exists Depression Screening 06/01/2025 06/01/2024, 11/25/2023, 05/13/2023, Additional history exists Fall Risk Assessment 06/01/2025 06/01/2024, 11/25/2023, 05/13/2023, Additional history exists Colon Cancer Screening-Colonoscopy 04/15/2028 04/15/2023, 10/17/2016 Pneumococcal vaccine 65+ Completed 019, 08/04/2017, 05/30/2006 Zoster Vaccine Completed 04/29/2019, 02/16, 12/28/2014 Hepatitis C Screening Completed 05/25/2020 Colon Cancer Screening-CT Colonography Discontinued 04/15/2023, 10/17/2016 Colon Cancer Screening-DNA Stool Discontinued 04/15/20, 10/17/2016 Colon Cancer Screening-FIT Discontinued 04/15/2023, Colon Cancer Screening-Sigmoidoscopy Discontinued 04/15/2023, 10/17/2016 Abdominal Aortic Aneurysm (A AA) Screen Completed 05/10/2023, 08/18/2017 Influenza Vaccine Completed 03/11/2024, , 03/13/2023, Additional history exists Medical Devices Implanted Type Area Robotic Technician Device Identifier Shelf Expiration Date Model / Serial / Lot Synthes 202.214 2.7mm 2.1mm 14mm Self Tap Lock Stardrive Thread Head Profile T8 - [id number] Implanted:Qty: 3 on 04/20/2018 by Toribio Duong MD at [facility] Left: Ankle Synthes I 202.214 / / Synthes 205.034 3.5mm 5mm 1.35mm 34mm 11mm Cannulated Low Profile Hemispherical - [id number] Implanted:Qty: 1 on 04/20/2018 by Toribio Duong MD at [facility] Left: Ankle Synthes I 205.034 / / Synthes 204.816 3.5mm 6mm 16mm 2.5mm Self Tap Small Hexagonal Socket Low Profile - [id number] Implanted:Qty: 1 on 04/20/2018 by Toribio Duong MD at [facility] Left: Ankle Synthes I 204.816 / / Synthes 212.103 3.5mm 2.9mm 14mm Self Tap Lock Stardrive Conical Head T15 Full - [id number] Implanted:Qty: 1 on 04/20/2018 by Toribio Duong MD at [facility] Left: Ankle Synthes I 212.103 / / Synthes 02.112.141 Lcp Combi 99mm 5 Hole Fibula Left Distal Lateral Contour Plate - [id number] Implanted:Qty: 1 on 04/20/2018 by Toribio Duong MD at [facility] Left: Ankle Synthes I 02.112.141 / / Synthes 202.818 2.7mm 5mm 18mm 2.5mm Self Tap Spherical Head Small Hexagonal - [id number] Implanted:Qty: 1 on 04/20/2018 by Toribio Duong MD at [facility] Left: Ankle Synthes I 202.818 / / Synthes 212.104 3.5mm 2.9mm 16mm Self Tap Lock Stardrive Conical Head T15 Full - [id number] Implanted:Qty: 1 on 04/20/2018 by Toribio Duong MD at [facility] Left: Ankle Synthes I 212.104 / / Synthes 202.212 2.7mm 2.1mm 12mm Self Tap Lock Stardrive Thread Head Profile T8 - [id number] Implanted:Qty: 2 on 04/20/2018 by Toribio Duong MD at [facility] Left: Ankle Synthes I 202.212 / / Synthes 204.814 3.5mm 6mm 14mm 2.5mm Self Tap Small Hexagonal Socket Low Profile - [id number] Implanted:Qty: 1 on 04/20/2018 by Toribio Duong MD at [facility] Left: Ankle Synthes I 204.814 / / 205.050 3.5mm Cannulated Screw Partially Threaded Implanted:Qty: 1 on 04/20/2018 by Toribio Duong MD at [facility] Left: Ankle Synthes I [id number] 205.050 / / Procedures Procedure Name Priority Date/Time Associated Diagnosis Comments CARDIOLOGY DOCUMENT SCAN 06/04/2024 SCAN - LABS 06/04/2024 CBC WITH AUTO DIFFERENTIAL Routine 06/04/2024 Hypertension, essential Mixed hyperlipidemia COMPREHENSIVE METABOLIC PANEL Routine 06/04/2024 Hypertension, essential Mixed hyperlipidemia LIPID PANEL Routine 06/04/2024 Hypertension, essential Mixed hyperlipidemia NM MPI SPECT (REST AND/OR STRESS) MULTIPLE STUDIES Schedule Routine, Read Routine (OP Routine) 05/27/2024 11:02 AM BULK MAIL CLERK Coronary artery disease 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 (HCC) MRI SHOULDER RIGHT WO CONTRAST Schedule Routine, Read Routine (OP Routine) 04/08/2024 1:31 PM BULK MAIL CLERK Acute pain of right shoulder Tendinitis of upper biceps tendon of right shoulder PSA SCREEN Routine 11/18/2023 10:17 AM CDT Healthcare maintenance Screening PSA (prostate specific antigen) CT ABDOMEN PELVIS W CONTRAST ED 05/10/2023 7:54 AM BULK MAIL CLERK COLONOSCOPY 04/15/2023 8:37 AM BULK MAIL CLERK HEPATITIS C ANTIBODY Routine 05/25/2020 from Last 3 Months or Most Recently Relevant to Health Maintenance Results * SCAN - LABS (06/04/2024) us Provider Scanning Final Result * Cardiology Document Scan (06/04/2024) Anatomical Region Laterality Modality Other us Kassie Reaves MD [facility] SAM TUCKER Edited Result - Final * CBC with auto differential (06/04/2024) Blood us Finesse Juares MD LAB BLOOD ORDERABLES Erendira l Result [facility] * Lipid panel (06/04/2024) SCRIBED Cholesterol, Total 121 <200 EXTERNAL LAB SCRIBED HDL 45 >40 EXTERNAL LAB SCRIBED LDL 62 <200 EXTERNAL LAB SCRIBED Triglycerides 66 <150 EXTERNAL LAB Blood 06/04/2024 us Finesse Juares MD LAB BLOOD ORDERABLES Edit ed Result - Final EXTERNAL LAB * Comprehensive metabolic panel (06/04/2024) Blood us Finesse Juares MD LAB BLOOD ORDERABLES Edit ed Result - Final Performing Organization Address City/[facility]/ZIP Co de Phone Number EXTERNAL LAB * NM MPI SPECT (Rest and/or Stress) Multiple Studies (05/27/2024 11:02 AM BULK MAIL CLERK) LV EF % CONS SCIMAGE Anatomical Region Laterality Modality Body N/A Nuclear Medicine 05/27/2024 8:08 AM BULK MAIL CLERK Narrative 05/27/2024 3:40 PM BULK MAIL CLERK [facility] Card[facility] [address] [facility] [facility] [address], [place] [address] [facility] [address], [place] [address] P:[phone] P:[phone] MPI Imaging Report Patient Name: MILTON JACOBS E : 1950 Study Date: 05/27/2024 8:08:00 AM Gender: M Tech: [facility] Location: [facility] Provider: KASSIE REAVES ?Height(Cm): 172.7 BSA: ??Weight(Kg): 96.3 BMI: 32.29 ?Order Provider: KASSIE REAVES - ?? PHYSICIAN: Referring Physician: Dr. Juares. HCG Physician: Daniel Reaves M.D. Interpreting Physician: Daniel Reaves M.D. Stress Supervision: Daniel Reaves M.D. ?? PROCEDURES: Exercise SPECT Report: Myocardial perfusion imaging with Tc99m Sestamibi SPECT at rest and stress post exercise using the Robert protocol. ?? INDICATIONS: Hypertension, Family Hx CAD, High Cholesterol, Former Smoker, and I25.118 Atherosclerotic heart disease of [place] coronary artery with other forms of angina pectoris. ?? FINDINGS: Procedure: ??One day rest/stress protocol was used. ??Tc99m Sestamibi injected IV at rest was 12.8 millicuries ??36.8 millicuries of Tc99m Sestamibi injected IV at peak stress ??Exercise stress related symptoms include shortness of breath. ??Symptoms were resolved with rest. ??Baseline heart rate was 59 BPM ??Peak heart rate was 140 BPM ??Max projected heart rate was 148 ??Percent predicted max heart rate achieved was 95 % ??Exercise Time 8:31 min ??Baseline blood pressure was 122/62 mmHg ??Peak blood pressure 158/70 mmHg Termination: Fatigue. Exercise Tolerance: Excellent for patient's age. Resting ECG: Sinus bradycardia. Nonspecific T wave abnormality. Post EC mm or more horizontal inferior and anterolateral ST depression. Perfusion Findings: Abnormal perfusion imaging - see below. Technical quality of study is excellent. Prone imaging was performed. Left ventricle cavity size at rest is normal. Left ventricle cavity size with stress is unchanged. A TID of 0.81 was automatically calculated. defect 1: Size is small. Severity is mild. Location of defect is in the mid inferior segment and apical inferior segment. Reversibility is full. Type of defect is ischemia. No change with prone imaging. LV Function: Global left ventricular function is normal. Left Ventricular Ejection Fraction is 70 %. ?? CONCLUSIONS: Abnormal Stress ECG with ST changes consistent with ischemia. Myocardial perfusion imaging is abnormal. Size is small. Severity is mild. Location of defect is in the mid inferior segment and apical inferior segment. Reversibility is full. Type of defect is ischemia. No change with prone imaging. 2 mm or more horizontal inferior and anterolateral ST depression. Global left ventricular function is normal. Left Ventricular Ejection Fraction is 70 %. Electronically Signed By: Kassie Reaves MD 05/27/2024 3:39:58 PM BULK MAIL CLERK Electronically Signed By: Kassie Reaves MD 05/27/2024 3:39:58 PM BULK MAIL CLERK Procedure Note Kassie Reaves MD - 05/27/2024 [facility] Cardiology [address] [facility] [address] [address] [facility] [address], [place] [address] P:[phone] P:[phone] MPI Imaging Report Patient Name: MILTON JACOBS E : 1950 Study Date: 05/27/2024 8:08:00 AM Gender: M Tech: [facility] Location: [facility] Provider: KASSIE REAVES Height(Cm): 172.7 BSA: Weight(Kg): 96.3 BMI: 32.29 Order Provider: KASSIE REAVES - PHYSICIAN: Referring Physician: Dr. Juares. HCG Physician: Daniel Reaves M.D. Interpreting Physician: Daniel Reaves M.D. Stress Supervision: Daniel Reaves M.D. PROCEDURES: Exercise SPECT Report: Myocardial perfusion imaging with Tc99m Sestamibi SPECT at rest and stresspost exercise using the Robert protocol. INDICATIONS: Hypertension, Family Hx CAD, High Cholesterol, Former Smoker, and I25.118Atherosclerotic heart disease of [place] coronary artery with other forms of anginapectoris. FINDINGS: Procedure: One day rest/stress protocol was used. Tc99m Sestamibi injected IV at rest was 12.8 millicuries 36.8 millicuries of Tc99m Sestamibi injected IV at peak stress Exercise stress related symptoms include shortness of breath. Symptoms were resolved with rest. Baseline heart rate was 59 BPM Peak heart rate was 140 BPM Max projected heart rate was 148 Percent predicted max heart rate achieved was 95 % Exercise Time 8:31 min Baseline blood pressure was 122/62 mmHg Peak blood pressure 158/70 mmHg Termination: Fatigue. Exercise Tolerance: Excellent for patient's age. Resting ECG: Sinus bradycardia. Nonspecific T wave abnormality. Post EC mm or more horizontal inferior and anterolateral ST depression. Perfusion Findings: Abnormal perfusion imaging - see below. Technical quality of study isexcellent. Prone imaging was performed. Left ventricle cavity size at rest is normal. Leftventricle cavity size with stress is unchanged. A TID of 0.81 was automaticallycalculated. defect 1: Size is small. Severity is mild. Location of defect is in the mid inferiorsegment and apical inferior segment. Reversibility is full. Type of defect isischemia. No change with prone imaging. LV Function: Global left ventricular function is normal. Left Ventricular EjectionFraction is 70 %. CONCLUSIONS: Abnormal Stress ECG with ST changes consistent with ischemia. Myocardial perfusion imaging is abnormal. Size is small. Severity is mild. Location of defect is in the mid inferiorsegment and apical inferior segment. Reversibility is full. Type of defect isischemia. No change with prone imaging. 2 mm or more horizontal inferior and anterolateral ST depression. Global left ventricular function is normal. Left Ventricular EjectionFraction is 70 %. Electronically Signed By: Kassie Reaves MD 05/27/2024 3:39:58 PM BULK MAIL CLERK Electronically Signed By: Kassie Reaves MD 05/27/2024 3:39:58 PM BULK MAIL CLERK us Kassie Reaves MD IMG NM PROCEDURES Final R esult * MRI Shoulder Right WO Contrast (04/08/2024 1:31 PM BULK MAIL CLERK) Anatomical Region Laterality Modality Upper Extremities Right Magnetic Reson ance 04/08/2024 3:28 PM BULK MAIL CLERK Narrative 04/08/2024 3:35 PM BULK MAIL CLERK EXAM DESCRIPTION: MRI SHOULDER RIGHT WO CONTRAST REASON FOR STUDY: Shoulder pain, chronic, adhesive capsulitis suspected, xray done ?? Pt has been experiencing pain in the rotating cuff for about a year now. He says it has affected range in motion and when he walks for long periods of times, he began to get a deep ache in his shoulder. No injury; Hx skin cancer ?? 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 TECHNIQUE: Multiplanar, multisequence MRI of the ??right ??shoulder was performed ??without contrast. ?? COMPARISON: None available FINDINGS: Rotator Cuff: ??There is advanced supraspinatus with full-thickness full width tearing and tendon retraction to the glenohumeral articulation. ??There is advanced infraspinatus tendinosis with full thickness partial width tearing of the anterior and mid fibers. ??A few of the posterior fibers are intact. ??The teres minor is intact. ??Intra-articular biceps is markedly diminutive in size. Subscapularis advanced tendinosis with marked articular and bursal surface fraying involving greater than 75% tendon thickness. Biceps Tendon: ??Medial subluxation compatible with disruption of the nancy mechanism. Labrum: ??No tear is identified. ? Acromion and AC Joint: ??The coracoacromial and coracoclavicular ligaments are intact. There is mild acromioclavicular osteoarthritis. ?? Type ??2 ??acromion. Glenohumeral Articulation: ??No subluxation. No chondromalacia. Bones: ??No fracture. Joint and bursae: ??No joint effusion or bursal fluid. No loose bodies. Soft Tissues: ??The scapular notch, and quadrilateral space are unremarkable. There is no axillary lymphadenopathy. IMPRESSION: Supraspinatus advanced tendinosis with full-thickness full width tearing and tendon retraction to the glenohumeral articulation. Infraspinatus advanced tendinosis with full thickness partial width tearing of the anterior and mid fibers. A few of the posterior fibers are intact. Subscapularis advanced tendinosis with marked articular and bursal surface fraying involving greater than 75% tendon thickness. Intra-articular biceps is markedly diminutive in size. Medial subluxation of the biceps compatible with disruption of the nancy mechanism. Acromioclavicular articulation mild osteoarthritis. THIS IS AN ELECTRONICALLY VERIFIED FINAL REPORT 04/08/2024 3:35 PM - Electronically signed by ??Brent Wilson M.D. JA: URIEL D: ??04/08/2024 3:35 PM T: ??04/08/2024 3:35 PM Report ID: [id number] Reading Location: ??[id number] Procedure Note Brent Wilson MD - 04/08/2024 EXAM DESCRIPTION: MRI SHOULDER RIGHT WO CONTRAST REASON FOR STUDY: Shoulder pain, chronic, adhesive capsulitis suspected,xray done Pt has been experiencing pain in the rotating cuff for about a year now.He says it has affected range in motion and when he walks for long periods of times, he began to get a deep ache in his shoulder. 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 COMPARISON: None available FINDINGS: Rotator Cuff: There is advanced supraspinatus with full-thickness fullwidth tearing and tendon retraction to the glenohumeral articulation. There is advanced infraspinatus tendinosis with full thickness partial widthtearing of the anterior and mid fibers. A few of the posterior fibers are intact.The teres minor is intact. Intra-articular biceps is markedly diminutive insize. Subscapularis advanced tendinosis with marked articular and bursalsurface fraying involving greater than 75% tendon thickness. Biceps Tendon: Medial subluxation compatible with disruption of thepulley mechanism. Labrum: No tear is identified. Acromion and AC Joint: The coracoacromial and coracoclavicular ligamentsare intact. There is mild acromioclavicular osteoarthritis. Type 2acromion. Glenohumeral Articulation: No subluxation. No chondromalacia. Bones: No fracture. Joint and bursae: No joint effusion or bursal fluid. No loose bodies. Soft Tissues: The scapular notch, and quadrilateral space areunremarkable. There is no axillary lymphadenopathy. IMPRESSION: Supraspinatus advanced tendinosis with full-thickness full width tearingand tendon retraction to the glenohumeral articulation. Infraspinatus advanced tendinosis with full thickness partial widthtearing of the anterior and mid fibers. A few of the posterior fibers areintact. Subscapularis advanced tendinosis with marked articular and bursalsurface fraying involving greater than 75% tendon thickness. Intra-articular biceps is markedly diminutive in size. Medial subluxation of the biceps compatible with disruption of the nancy mechanism. Acromioclavicular articulation mild osteoarthritis. THIS IS AN ELECTRONICALLY VERIFIED FINAL REPORT 04/08/2024 3:35 PM - Electronically signed by Brent Wilson M.D. JA: URIEL Report ID: [id number] Reading Location: [place] [address] Stefan Obrien DO IMG MRI PROCEDURES Fin al Result * PSA screen (11/18/2023 10:17 AM CDT) PSA 0.3 0.0 - 4.0 ng/mL [facility] - 01 Comment: Kassandra ECLIA methodology. According to the [place] [employer], Serum PSA should decrease and remain at undetectable levels after radical prostatectomy. The AUA defines biochemical recurrence as an initial PSA value 0.2 ng/mL or greater followed by a subsequent confirmatory PSA value 0.2 ng/mL or greater. Values obtained with different assay methods or kits cannot be used interchangeably. Results cannot be interpreted as absolute evidence of the presence or absence of malignant disease. Blood 11/18/2023 10:1 7 AM CDT 11/18/2023 Narrative [facility] - 11/19/2023 7:11 AM CDT Performed at: ??01 - [facility], [place], [place] ??[id number] Program Planner: Bunny Mijares PhD, Phone: ??[phone] us Serge Alcala MD LAB BLOOD ORDERABLES Final R esult [facility] - 01 * CT Abdomen Pelvis W Contrast (05/10/2023 7:54 AM BULK MAIL CLERK) Anatomical Region Laterality Modality Body N/A Computed Tomogra phy 05/10/2023 8:14 AM BULK MAIL CLERK Narrative 05/10/2023 8:27 AM BULK MAIL CLERK EXAM DESCRIPTION: ?? CT ABDOMEN PELVIS W CONTRAST REASON FOR STUDY: ?? Abdominal pain, acute, nonlocalized ?? Pain, nausea and discomfort for 3 days, history of cholecystectomy ? TECHNIQUE: CT scan of the abdomen and pelvis performed with intravenous and ?? without ??oral contrast using helical scanning technique with dynamic intravenous contrast injection. Reconstructed coronal and sagittal MPR images reviewed. All images stored on PACS. Automated exposure control was used as a dose optimization technique for this examination. CONTRAST TYPE/DOSE: ?? 75mL of IOVERSOL 350 MG IODINE/ML INTRAVENOUS SYRINGE ?? injected via ?? intravenous COMPARISON: ?? None REFERENCE: Per ACR white paper recommendations, unless otherwise specified no follow-up imaging is recommended for incidental renal and adrenal lesions per consensus recommendations based on imaging criteria. Further lab evaluation could be pursued based on clinical findings. FINDINGS: LOWER CHEST: ?? No significant pulmonary abnormalities. No effusion. LIVER: ?? The liver is normal in size. ??11 mm indeterminate hypoattenuating lesion is noted within the inferior right billy liver, indeterminate by density although likely representing a cyst (44). ??A smaller lesion is noted inferiorly (49). GALLBLADDER: ?? Absent BILE DUCTS: ?? Mild biliary ductal dilatation, likely post cholecystectomy change. SPLEEN: ?? Spleen is normal in size. PANCREAS: ?? Pancreas is normal in size. ??No significant peripancreatic stranding or main ductal dilatation. ?? ADRENALS: ?? Normal. KIDNEYS/URINARY TRACT: ?? The kidneys are normal in size. ??Symmetric in enhancement. ??Mild perinephric stranding, likely scarring. ??An 8 cm upper pole right renal cyst is noted. ??There are smaller hypoattenuating lesions within both kidneys which are too small to further characterize but likely represent cysts as well. ??There small bilateral nonobstructing renal calculi. ??The urinary bladder is partially distended. ??Mild thickening, likely due to partial distention. GI: ?? There is liquid stool within the ascending colon and cecum. ??This can be seen in the setting of a diarrheal state. ??The appendix is not definitively seen. ??No ancillary finding of acute appendicitis. ??There are prominent liquid small-bowel loops which are nondilated without thickening or stranding to suggest enteritis. ??The stomach is partially distended. ??Thickening of a decompressed distal esophagus is likely due to under distension. PERITONEUM: ?? No free air. ??No ascites is seen. ??Small fat containing umbilical/periumbilical hernias. ??Subcentimeter mesenteric lymph nodes are noted. RETROPERITONEUM: ?? No retroperitoneal or inguinal lymphadenopathy is seen. REPRODUCTIVE: ?? No significant abnormality. ?? There are small fat containing inguinal hernias. VASCULATURE: ?? The portal vein is patent. ??The aorta is normal in caliber. MUSCULOSKELETAL: ?? Bone windows demonstrate no suspicious lytic or sclerotic lesion. OTHER: ?? No other abnormality. IMPRESSION: ?? 1. ?? Prominent fluid-filled loops of small bowel without thickening or stranding to suggest enteritis. 2. ?? Post cholecystectomy changes. 3. ?? Small nonobstructing renal calculi. 4. ?? Small indeterminate hypoattenuating lesions within the right liver. ?? Recommend correlation with the patient's previous outside imaging. THIS IS AN ELECTRONICALLY VERIFIED FINAL REPORT 05/10/2023 8:27 AM - Electronically signed by ??Lars Morales M.D. AG: JAILYN D: ??05/10/2023 8:27 AM T: ??05/10/2023 8:27 AM Report ID: [id number] Reading Location: ??[id number] Procedure Note Lars Morales MD - 05/10/2023 EXAM DESCRIPTION: CT ABDOMEN PELVIS W CONTRAST REASON FOR STUDY: Abdominal pain, acute, nonlocalized Pain, nausea and discomfort for 3 days, history of cholecystectomy TECHNIQUE: CT scan of the abdomen and pelvis performed with intravenousand without oral contrast using helical scanning technique with dynamic intravenous contrast injection. Reconstructed coronal and sagittal MPRimages reviewed. All images stored on PACS. Automated exposure control was usedas a dose optimization technique for this examination. CONTRAST TYPE/DOSE: 75mL of IOVERSOL 350 MG IODINE/ML INTRAVENOUSSYRINGE injected via intravenous COMPARISON: None REFERENCE: Per ACR white paper recommendations, unless otherwise specifiedno follow-up imaging is recommended for incidental renal and adrenal lesionsper consensus recommendations based on imaging criteria. Further labevaluation could be pursued based on clinical findings. FINDINGS: LOWER CHEST: No significant pulmonary abnormalities. No effusion. LIVER: The liver is normal in size. 11 mm indeterminate hypoattenuating lesion is noted within the inferior right billy liver, indeterminate bydensity although likely representing a cyst (44). A smaller lesion is noted inferiorly (49). GALLBLADDER: Absent BILE DUCTS: Mild biliary ductal dilatation, likely post cholecystectomy change. SPLEEN: Spleen is normal in size. PANCREAS: Pancreas is normal in size. No significant peripancreatic stranding or main ductal dilatation. ADRENALS: Normal. KIDNEYS/URINARY TRACT: The kidneys are normal in size. Symmetric in enhancement. Mild perinephric stranding, likely scarring. An 8 cm upperpole right renal cyst is noted. There are smaller hypoattenuating lesionswithin both kidneys which are too small to further characterize but likelyrepresent cysts as well. There small bilateral nonobstructing renal calculi. The urinary bladder is partially distended. Mild thickening, likely due to partial distention. GI: There is liquid stool within the ascending colon and cecum. Thiscan be seen in the setting of a diarrheal state. The appendix is notdefinitively seen. No ancillary finding of acute appendicitis. There are prominentliquid small-bowel loops which are nondilated without thickening or stranding to suggest enteritis. The stomach is partially distended. Thickening of a decompressed distal esophagus is likely due to under distension. PERITONEUM: No free air. No ascites is seen. Small fat containing umbilical/periumbilical hernias. Subcentimeter mesenteric lymph nodes are noted. RETROPERITONEUM: No retroperitoneal or inguinal lymphadenopathy is seen. REPRODUCTIVE: No significant abnormality. There are small fatcontaining inguinal hernias. VASCULATURE: The portal vein is patent. The aorta is normal in caliber. MUSCULOSKELETAL: Bone windows demonstrate no suspicious lytic orsclerotic lesion. OTHER: No other abnormality. IMPRESSION: 1. Prominent fluid-filled loops of small bowel without thickening or stranding to suggest enteritis. 2. Post cholecystectomy changes. 3. Small nonobstructing renal calculi. 4. Small indeterminate hypoattenuating lesions within the right liver. Recommend correlation with the patient's previous outside imaging. THIS IS AN ELECTRONICALLY VERIFIED FINAL REPORT 05/10/2023 8:27 AM - Electronically signed by Lars Morales M.D. AG: JAILYN Report ID: [id number] Reading Location: [place] [address] us Sung Ball MD IMG CT PROCEDURES Final Resu lt * COLONOSCOPY (04/15/2023 8:37 AM BULK MAIL CLERK) Anatomical Region Laterality Modality Other Narrative Procedure Note Jermaine Thompson MD - 04/15/2023 8:37 AM CST [facility] Patient Name: Milton Jacobs Procedure Date: 04/15/2023 8:37 AM Date of : 1950 Admit Type: Outpatient Age: 73 Gender: Male Attending MD: Jermaine Thompson M.D. Room: [facility] ENDOSCOPY ROOM 2 Note Status: Finalized Patient Profile: Refer to note in patient chart for documentation of history and physical. Procedure: Colonoscopy Indications: High risk colon cancer surveillance: Personalhistory of colonic polyps, Last colonoscopy: October 2016 Referring MD: Serge Alcala M.D. Providers: Jermaine Thompson M.D. Impression: - Hemorrhoids found on perianal exam. - The entire examined colon is normal. - No specimens collected. Recommendation: - Discharge patient to home. - Resume previous diet. - Continue present medications. - Repeat colonoscopy in 5 years for surveillance. - Return to primary care physician as previously scheduled. Medicines: Propofol per Anesthesia Complications: No immediate complications. Estimated Blood Loss: Estimated blood loss: none. Procedure: Pre-Anesthesia Assessment: - This assessment was completed [Time ofAssessment] prior to the administration of sedation. The benefits, risks and alternatives of theprocedure and sedation were discussed and informed consentwas obtained. All questions were answered. Please referto the signed informed consent document in the medical record. The bowel preparation used was Miralax via single dose instruction. The bowel preparation used was bisacodyl tablets via single dose instruction.The scope was passed under direct vision. TheColonoscope [id number] was introduced through the anus and advanced to the the cecum, identified by appendiceal orifice and ileocecal valve. The colonoscopy was performed without difficulty. The patient tolerated the procedure well. The qualityof the bowel preparation was excellent. The terminal ileum, ileocecal valve, appendiceal orifice, and rectum were photographed. Findings: Hemorrhoids were found on perianal exam. The colon (entire examined portion) appeared normal. Electronically signed by Jermaine R. Jay, M.D. Jermaine Thompson M.D. 04/15/2023 9:23:36 AM Number of Addenda: 0 Note Initiated On: 04/15/2023 8:37 AM Procedure Code(s): --- Professional --- G0105, Colorectal cancer screening; colonoscopy on individual at high risk --- Technical --- G0105, Colorectal cancer screening; colonoscopy on individual at high risk Diagnosis Code(s): --- Professional --- K64.9, Unspecified hemorrhoids Z86.010, Personal history of colonic polyps --- Technical --- K64.9, Unspecified hemorrhoids Z86.010, Personal history of colonic polyps CPT copyright 2020 [employer]. All rights reserved. The codes documented in this report are preliminary and upon fruit or nut farmer reviewmay be revised to meet current compliance requirements. Recognized by the [employer] for promoting quality in endoscopy Jermaine Thompson MD ENDOSCOPY PROCEDURES Final Re sult * Hepatitis C antibody (05/25/2020) SCRIBED HCV ab non reactive EXTERNAL LAB Blood specimen (specimen) Historical Provider LAB MICROBIOLOGY - GENERA L ORDERABLES Final Result EXTERNAL LAB from Last 3 Months or Most Recently Relevant to Health Maintenance Insurance MEDICARE SOLUTIONS [facility] MDCR HMO REF [employer] MEDICARE GOLD Advance Directives For more information, please contact: [phone] * Full Code (Latest Code Status on File) Date Activated Date Inactivated Comments 04/15/2023 8:28 AM 04/15/2023 2:05 PM * Full Code Date Activated Date Inactivated Comments 04/15/2023 8:28 AM 04/15/2023 8:28 AM Care Teams Email Production Specialist Relationship Specialty Start Date End Date Finesse [place]ares [place] [address] [address] PCP - General Family Medicine 11/25/23
--- OUTSIDE RECORDS SUMMARY | 2024-06-10 05:03 | XMS_ITS ---
Author Organization [facility] Address [address] [place] [address] Care Team Providers Care Contract Consultant Name Role Phone Finesse Juares MD Primary Care Provider [phone] Active Problems Problem Noted Date Diagnosed Date BMI 31.0-31.9,adult 06/01/2024 Assessment & Plan (06/01/2024 10:15 AM PHOTOGRAPHER NEWS): Encourage helathy food chocies and target 150min/week aerobic exeicse. Obesity (BMI 30.0-34.9) 06/01/2024 Assessment & Plan (06/01/2024 10:15 AM PHOTOGRAPHER NEWS): As above. Mixed hyperlipidemia 06/01/2024 Assessment & Plan (06/01/2024 10:15 AM PHOTOGRAPHER NEWS): Stable on statin therpay and will continue to follow repsonse. Hypertension, essential 06/01/2024 Assessment & Plan (06/01/2024 10:16 AM PHOTOGRAPHER NEWS): WIll follow response. NO change, no side effectds to medication. Biceps tendinitis of right upper extremity 05/13 Assessment & Plan (05/13/2023 10:53 AM PHOTOGRAPHER NEWS): Rest ice stretching exercises demonstrated. Call back for physical therapy or orthopedic referral if no improvement. Personal history of colonic polyps 02/13/2023 Left carotid bruit 04/29/2022 Fatigue 04/22/2022 Assessment & Plan (04/22/2022 6:27 PM PHOTOGRAPHER NEWS): Sleep apnea currently being treated. Mood stable per his report. TSH has been normal in the past. Repeat testosterone level. Had too many side effects on previous testosterone replacement. May be willing to try again due to fatigue. Check CBC before next visit. Decrease both citalopram and Bystolic to see if has improvement Urinary frequency 10/19/2021 Assessment & Plan (04/22/2022 6:25 PM PHOTOGRAPHER NEWS): Improved with tamsulosin. Assessment & Plan (10/19/2021 11:59 AM CDT): Start tamsulosin and warned of potential aggravation of orthostasis. Call back if this occurs or if no improvement. Consider Myrbetriq next time for overactive bladder. SCC (squamous cell carcinoma), hand, left 2021 Overview (06/06/2021): Added automatically from request for surgery [id number] Skin lesion 04/18/2021 Assessment & Plan (04/18/2021 11:32 AM PHOTOGRAPHER NEWS): Probably represents malignancy and have recommended plastic [...] 06/21/2020 Assessment & Plan (06/21/2020 12:12 PM PHOTOGRAPHER NEWS): He has a history of coronary artery disease and an abnormal examination of his left lower extremity, therefore requires formal HARDEEP testing at [facility] and should call back for results. If moderate to severe disease present, would recommend CT angiogram and then management per his stitcher utility. If mild to normal findings, would recommend [...] fall prevention, proper nutrition, and suggested joining [facility] to accomplish most of these goals. Patient [...] (04/17/2018): Added automatically from request for surgery [id number] Closed displaced fracture of medial malleolus of left tibia 04/17/2018 Overview (04/17/2018): Added automatically from request for surgery [id number] Coronary artery disease of n ative artery of [place] heart with stable angina pectoris 01/07/2018 Overview (06/21/2020): RCA MAT 12/2017 RCA MAT x2 April 2020 Assessment & Plan (06/01/2024 10:12 AM PHOTOGRAPHER NEWS): COntinues on secondary prevneiton. Newly positive stress test with minimal symptoms. Upcoming cardiac cath. Assessment & Plan (05/13/2023 10:52 AM PHOTOGRAPHER NEWS): Continue nebivolol, lisinopril, atorvastatin, aspirin follow up with Cardiology as they direct Assessment & Plan (10/22/2022 5:16 PM CDT): Continue his nebivolol, lisinopril, atorvastatin, aspirin follow-up with Cardiology as they direct. Assessment & Plan (10/19/2021 11:59 AM CDT): Continue current medication regimen follow up with stitcher utility as they direct. Assessment & Plan (11/12/2020 5:33 PM CDT): Continue current medication regimen and follow-up with his stitcher utility as they direct. Assessment & Plan (06/21/2020 12:10 PM PHOTOGRAPHER NEWS): Continues aspirin, atorvastatin, Brilinta, Bystolic and follow up with stitcher utility as he directs. Certainly is coronary artery disease makes him more likely and at risk of having lower extremity peripheral arterial disease and warrants further workup despite him being asymptomatic. Assessment & Plan (10/14/2019 11:17 AM CDT): Continue Brilinta lisinopril Bystolic atorvastatin aspirin and follow up with stitcher utility as they direct. Assessment & Plan (08/11/2018 10:19 PM CDT): Continue Brilinta, lisinopril, Bystolic, atorvastatin, aspirin follow up with stitcher utility as he directs. Family history of premature coronary artery dise ase 12/17/2017 Former smoker 12/17/2017 Essential hypertension 12/17/2017 Positive cardiac stress test 12/17/2017 Assessment & Plan (06/01/2024 10:14 AM PHOTOGRAPHER NEWS): Upcoming stress test. WIll follow reposnse. Obstructive sleep apnea 01/30/2015 Overview (04/22/2022): BIPAP Assessment & Plan (06/01/2024 10:14 AM PHOTOGRAPHER NEWS): Continue f/u with Dr. Dunham and will montior response. Assessment & Plan (05/13/2023 10:52 AM PHOTOGRAPHER NEWS): Well controlled on BiPAP and follow up with his sleep medicine specialist as they direct Assessment & Plan (04/22/2022 6:25 PM PHOTOGRAPHER NEWS): Continue BiPAP and follow-up with his sleep [...] deficiency Assessment & Plan (05/13/2023 10:52 AM PHOTOGRAPHER NEWS): Continue supplementation check levels yearly. Assessment & [...] yearly. Assessment & Plan (04/22/2022 6:25 PM PHOTOGRAPHER NEWS): Patient should reduce sugar and carbs, increase [...] paxil. Assessment & Plan (06/01/2024 10:13 AM PHOTOGRAPHER NEWS): Continues on citalporam and will follow response. Assessment & Plan (04/22/2022 6:25 PM PHOTOGRAPHER NEWS): Stable on citalopram but will try decreasing [...] hypofunction. Assessment & Plan (05/13/2023 10:51 AM PHOTOGRAPHER NEWS): Well controlled on lisinopril nebivolol Assessment & Plan (10/22/2022 5:15 PM CDT): Blood pressure well controlled on lisinopril nebivolol Assessment & Plan (04/22/2022 6:26 PM PHOTOGRAPHER NEWS): Blood pressure on the lower side of [...] recommended. Assessment & Plan (04/18/2021 11:31 AM PHOTOGRAPHER NEWS): Well controlled on the current regimen. Avoidance of salt, proper body weight, and routine exercise recommended. Assessment & Plan (11/12/2020 5:32 PM CDT): Well controlled on the current regimen. Avoidance of salt, proper body weight, and routine exercise recommended. Assessment & Plan (06/21/2020 12:11 PM PHOTOGRAPHER NEWS): Well controlled on the current regimen. Avoidance [...] HYPERLIPIDEMIA Assessment & Plan (05/13/2023 10:52 AM PHOTOGRAPHER NEWS): Well controlled on current therapy and will check a lipid panel and LFTs in 6 months. Assessment & Plan (10/22/2022 5:16 PM CDT): Continue Atorvastatin diet exercise. Assessment & Plan (04/22/2022 6:25 PM PHOTOGRAPHER NEWS): Well controlled on current therapy and will [...] CDT): Well controlled on Ambien and melatonin. Current Oncology Plans No current plan information found. Past Plans No past plan information found. Radiation Treatments * No radiation treatments are documented for this patient in [employer]. Treatments may have been administered in another system. Lifetime Dose Tracking * Chemical Lifetime Dose Automatic Entry Manual Entr y Fluoro Time 0.2 minutes 0.2 minutes 0 minutes Resolved Problems Problem Noted Date Diagnosed Date [...] fall prevention, proper nutrition, and suggested joining [facility] to accomplish most of these goals. Patient [...]
--- OUTSIDE RECORDS SUMMARY | 2024-06-10 05:03 | XMS_ITS | Referral Summary ---
Author Organization [facility] Address [address] [place] [address] Care Team Providers Care Cable Puller Name Role Phone Finesse Juares MD Primary Care Provider [phone] Encounters Date Type Department Care Team Description 06/04/2024 Orders Only [facility] Health Information Management [address] [place] [id number] Kassie Reaves MD 06/04/2024 Orders Only [facility] [address] [address] Finesse Juaers MD 06/04/2024 Telephone [facility] Primary Care at [address] [address] Mary Rehman MA 06/01/2024 9:45 AM INVASIVE CARDIOVASCULAR TECHNOLOGIST Office Visit [facility] Medical [facility] Primary Care at [address] [address] Finesse Juares MD Hypertension, essential (Primary Dx); Mixed hyperlipidemia; Coronary artery disease of [place] artery of [place] heart with stable angina pectoris (HCC); Recurrent major depressive disorder, in full remission (CMS/HCC) (HCC); Positive cardiac stress test; Obstructive sleep apnea; BMI 31.0-31.9,adult; Obesity (BMI 30.0-34.9) 05/28/2024 Telephone [facility] Cardiology [address] [facility] [address] [place] [phone] Kassie Reaves MD 05/27/2024 9:15 AM INVASIVE CARDIOVASCULAR TECHNOLOGIST Ancillary Procedure [facility] Cardiology [address] [facility] [address] [place] [phone] Coronary artery disease of [place]edar[place] artery of [place] heart with stable angina pectoris (HCC) 04/13/2024 10:30 AM INVASIVE CARDIOVASCULAR TECHNOLOGIST Office Visit [facility] Sports Medicine and Primary Care at [address] [place] [phone] Stefan Obrien DO Osteoarthritis of right shoulder, unspecified osteoarthritis type (Primary Dx); Nontraumatic incomplete tear of right rotator cuff 04/09/2024 Telephone [facility] Sports Medicine and Primary Care at [address] [address] Yuridia Ortiz MA Test Results 04/08/2024 12:40 PM INVASIVE CARDIOVASCULAR TECHNOLOGIST - 04/08/2024 11:59 PM INVASIVE CARDIOVASCULAR TECHNOLOGIST Hospital Encounter [facility] [address] [place] [address] Acute pain of right shoulder; Tendinitis of upper biceps tendon of right shoulder Discharge Disposition: Discharge to home or self care 03/30/2024 1:30 PM INVASIVE CARDIOVASCULAR TECHNOLOGIST Office Visit [facility] Medical Group Cardiology at [address] [phone] Kassie Reaves MD Coronary artery disease of [place] artery of [place] heart with stable angina pectoris (HCC) (Primary Dx); Hyperlipidemia LDL goal <70; Essential hypertension; Obstructive sleep apnea 03/22/2024 Telephone [facility] Sports Medicine and Primary Care at [address] [phone] Stefan Obrien DO 03/22/2024 11:45 AM INVASIVE CARDIOVASCULAR TECHNOLOGIST Office Visit [facility] Sports Medicine and Primary Care at [address] [phone] Stefan Obrien DO Acute pain of right shoulder (Primary Dx); Tendinitis of upper biceps tendon of right shoulder from Last 3 Months Allergies No known active allergies Medications cholecalciferol [...] 10 mg tabletIndicatio ns:Coronary artery disease of [place] artery of [place] heart with stable angina pectoris (HCC) TAKE [...] 06/01/2024 Assessment & Plan (06/01/2024 10:15 AM INVASIVE CARDIOVASCULAR TECHNOLOGIST): Encourage helathy food chocies and target 150min/week aerobic exeicse. Obesity (BMI 30.0-34.9) 06/01/2024 Assessment & Plan (06/01/2024 10:15 AM INVASIVE CARDIOVASCULAR TECHNOLOGIST): As above. Mixed hyperlipidemia 06/01/2024 Assessment & Plan (06/01/2024 10:15 AM INVASIVE CARDIOVASCULAR TECHNOLOGIST): Stable on statin therpay and will continue to follow repsonse. Hypertension, essential 06/01/2024 Assessment & Plan (06/01/2024 10:16 AM INVASIVE CARDIOVASCULAR TECHNOLOGIST): WIll follow response. NO change, no side effectds to medication. Biceps tendinitis of right upper extremity 05/13 Assessment & Plan (05/13/2023 10:53 AM INVASIVE CARDIOVASCULAR TECHNOLOGIST): Rest ice stretching exercises demonstrated. Call back for physical therapy or orthopedic referral if no improvement. Personal history of colonic polyps 02/13/2023 Left carotid bruit 04/29/2022 Fatigue 04/22/2022 Assessment & Plan (04/22/2022 6:27 PM INVASIVE CARDIOVASCULAR TECHNOLOGIST): Sleep apnea currently being treated. Mood stable per his report. TSH has been normal in the past. Repeat testosterone level. Had too many side effects on previous testosterone replacement. May be willing to try again due to fatigue. Check CBC before next visit. Decrease both citalopram and Bystolic to see if has improvement Urinary frequency 10/19/2021 Assessment & Plan (04/22/2022 6:25 PM INVASIVE CARDIOVASCULAR TECHNOLOGIST): Improved with tamsulosin. Assessment & Plan (10/19/2021 11:59 AM CDT): Start tamsulosin and warned of potential aggravation of orthostasis. Call back if this occurs or if no improvement. Consider Myrbetriq next time for overactive bladder. SCC (squamous cell carcinoma), hand, left 2021 Overview (06/06/2021): Added automatically from request for surgery [id number] Skin lesion 04/18/2021 Assessment & Plan (04/18/2021 11:32 AM INVASIVE CARDIOVASCULAR TECHNOLOGIST): Probably represents malignancy and have recommended plastic [...] 06/21/2020 Assessment & Plan (06/21/2020 12:12 PM INVASIVE CARDIOVASCULAR TECHNOLOGIST): He has a history of coronary artery disease and an abnormal examination of his left lower extremity, therefore requires formal HARDEEP testing at [facility] and should call back for results. If moderate to severe disease present, would recommend CT angiogram and then management per his child neurologist. If mild to normal findings, would recommend [...] fall prevention, proper nutrition, and suggested joining [facility] to accomplish most of these goals. Patient [...] (04/17/2018): Added automatically from request for surgery [id number] Closed displaced fracture of medial malleolus of left tibia 04/17/2018 Overview (04/17/2018): Added automatically from request for surgery [id number] Coronary artery disease of n ative artery of cedarville heart with stable angina pectoris 01/07/2018 Overview (06/21/2020): RCA MAT 12/2017 RCA MAT x2 April 2020 Assessment & Plan (06/01/2024 10:12 AM INVASIVE CARDIOVASCULAR TECHNOLOGIST): COntinues on secondary prevneiton. Newly positive stress test with minimal symptoms. Upcoming cardiac cath. Assessment & Plan (05/13/2023 10:52 AM INVASIVE CARDIOVASCULAR TECHNOLOGIST): Continue nebivolol, lisinopril, atorvastatin, aspirin follow up with Cardiology as they direct Assessment & Plan (10/22/2022 5:16 PM CDT): Continue his nebivolol, lisinopril, atorvastatin, aspirin follow-up with Cardiology as they direct. Assessment & Plan (10/19/2021 11:59 AM CDT): Continue current medication regimen follow up with child neurologist as they direct. Assessment & Plan (11/12/2020 5:33 PM CDT): Continue current medication regimen and follow-up with his child neurologist as they direct. Assessment & Plan (06/21/2020 12:10 PM INVASIVE CARDIOVASCULAR TECHNOLOGIST): Continues aspirin, atorvastatin, Brilinta, Bystolic and follow up with child neurologist as he directs. Certainly is coronary artery disease makes him more likely and at risk of having lower extremity peripheral arterial disease and warrants further workup despite him being asymptomatic. Assessment & Plan (10/14/2019 11:17 AM CDT): Continue Brilinta lisinopril Bystolic atorvastatin aspirin and follow up with child neurologist as they direct. Assessment & Plan (08/11/2018 10:19 PM CDT): Continue Brilinta, lisinopril, Bystolic, atorvastatin, aspirin follow up with child neurologist as he directs. Family history of premature coronary artery dise ase 12/17/2017 Former smoker 12/17/2017 Essential hypertension 12/17/2017 Positive cardiac stress test 12/17/2017 Assessment & Plan (06/01/2024 10:14 AM INVASIVE CARDIOVASCULAR TECHNOLOGIST): Upcoming stress test. WIll follow reposnse. Obstructive sleep apnea 01/30/2015 Overview (04/22/2022): BIPAP Assessment & Plan (06/01/2024 10:14 AM INVASIVE CARDIOVASCULAR TECHNOLOGIST): Continue f/u with Dr. Dunham and will montior response. Assessment & Plan (05/13/2023 10:52 AM INVASIVE CARDIOVASCULAR TECHNOLOGIST): Well controlled on BiPAP and follow up with his sleep medicine specialist as they direct Assessment & Plan (04/22/2022 6:25 PM INVASIVE CARDIOVASCULAR TECHNOLOGIST): Continue BiPAP and follow-up with his sleep [...] deficiency Assessment & Plan (05/13/2023 10:52 AM INVASIVE CARDIOVASCULAR TECHNOLOGIST): Continue supplementation check levels yearly. Assessment & [...] yearly. Assessment & Plan (04/22/2022 6:25 PM INVASIVE CARDIOVASCULAR TECHNOLOGIST): Patient should reduce sugar and carbs, increase [...] paxil. Assessment & Plan (06/01/2024 10:13 AM INVASIVE CARDIOVASCULAR TECHNOLOGIST): Continues on citalporam and will follow response. Assessment & Plan (04/22/2022 6:25 PM INVASIVE CARDIOVASCULAR TECHNOLOGIST): Stable on citalopram but will try decreasing [...] hypofunction. Assessment & Plan (05/13/2023 10:51 AM INVASIVE CARDIOVASCULAR TECHNOLOGIST): Well controlled on lisinopril nebivolol Assessment & Plan (10/22/2022 5:15 PM CDT): Blood pressure well controlled on lisinopril nebivolol Assessment & Plan (04/22/2022 6:26 PM INVASIVE CARDIOVASCULAR TECHNOLOGIST): Blood pressure on the lower side of [...] recommended. Assessment & Plan (04/18/2021 11:31 AM INVASIVE CARDIOVASCULAR TECHNOLOGIST): Well controlled on the current regimen. Avoidance of salt, proper body weight, and routine exercise recommended. Assessment & Plan (11/12/2020 5:32 PM CDT): Well controlled on the current regimen. Avoidance of salt, proper body weight, and routine exercise recommended. Assessment & Plan (06/21/2020 12:11 PM INVASIVE CARDIOVASCULAR TECHNOLOGIST): Well controlled on the current regimen. Avoidance [...] HYPERLIPIDEMIA Assessment & Plan (05/13/2023 10:52 AM INVASIVE CARDIOVASCULAR TECHNOLOGIST): Well controlled on current therapy and will check a lipid panel and LFTs in 6 months. Assessment & Plan (10/22/2022 5:16 PM CDT): Continue Atorvastatin diet exercise. Assessment & Plan (04/22/2022 6:25 PM INVASIVE CARDIOVASCULAR TECHNOLOGIST): Well controlled on current therapy and will [...] fall prevention, proper nutrition, and suggested joining [facility] to accomplish most of these goals. Patient [...] Hypersomnia Adiposity 08/01/2011 03/12/2017 Overview (08/24/2016): Obesity Immunizations Name Administration Dates Next Due COVID-19 [...] 09/27/2011 ZOSTER LIVE 12/28/2014 ZOSTER Recombinant 04/29/2019,02/26/2019 Social History Tobacco Use Types Packs/Day Years [...] on file Legal Sex Male 4:42 PM INVASIVE CARDIOVASCULAR TECHNOLOGIST Gender Identity Male 06/11/2021 9:12 AM INVASIVE CARDIOVASCULAR TECHNOLOGIST Sexual Orientation Not on file Last Filed Vital Signs Vital Sign Reading Time Taken Comments Blood Pressure 122/68 06/01/2024 9:42 AM INVASIVE CARDIOVASCULAR TECHNOLOGIST Pulse 74 06/01/2024 9:42 AM INVASIVE CARDIOVASCULAR TECHNOLOGIST Temperature 36.7 ??C (98.1 ??F) 06/01/2024 9:42 AM CS T Respiratory Rate 16 04/13/2024 10:3 4 AM INVASIVE CARDIOVASCULAR TECHNOLOGIST Oxygen Saturation 98% 06/01/2024 9:42 AM INVASIVE CARDIOVASCULAR TECHNOLOGIST Inhaled Oxygen Concentration - - Weight 95.2 kg (209 lb 14.4 oz) 06/01/2024 9:42 AM INVASIVE CARDIOVASCULAR TECHNOLOGIST Height 172.7 cm (5' 8 ) 06/01/2024 9:42 AM INVASIVE CARDIOVASCULAR TECHNOLOGIST Body Mass Index 31.92 06/01/2024 9:42 AM INVASIVE CARDIOVASCULAR TECHNOLOGIST Plan of Treatment Not on file Medical Devices Implanted Type Area Acoustic Sensor Operator Device Identifier Shelf Expiration Date Model / Serial / Lot Synthes 202.214 2.7mm 2.1mm 14mm Self Tap Lock Stardrive Thread Head Profile T8 - [id number] Implanted:Qty: 3 on 04/20/2018 by Toribio Duong MD at [facility] Left: Ankle Synthes I 202.214 / / Synthes 205.034 3.5mm 5mm 1.35mm 34mm 11mm Cannulated Low Profile Hemispherical - [id number] Implanted:Qty: 1 on 04/20/2018 by Toribio Duong MD at [facility] Left: Ankle Synthes I 205.034 / / Synthes 204.816 3.5mm 6mm 16mm 2.5mm Self Tap Small Hexagonal Socket Low Profile - [id number] Implanted:Qty: 1 on 04/20/2018 by Toribio Duong MD at [facility] Left: Ankle Synthes I 204.816 / / Synthes 212.103 3.5mm 2.9mm 14mm Self Tap Lock Stardrive Conical Head T15 Full - [id number] Implanted:Qty: 1 on 04/20/2018 by Toribio Duong MD at [facility] Left: Ankle Synthes I 212.103 / / Synthes 02.112.141 Lcp Combi 99mm 5 Hole Fibula Left Distal Lateral Contour Plate - [id number] Implanted:Qty: 1 on 04/20/2018 by Toribio Duong MD at [facility] Left: Ankle Synthes I 02.112.141 / / Synthes 202.818 2.7mm 5mm 18mm 2.5mm Self Tap Spherical Head Small Hexagonal - [id number] Implanted:Qty: 1 on 04/20/2018 by Toribio Duong MD at [facility] Left: Ankle Synthes I 202.818 / / Synthes 212.104 3.5mm 2.9mm 16mm Self Tap Lock Stardrive Conical Head T15 Full - [id number] Implanted:Qty: 1 on 04/20/2018 by Toribio Duong MD at [facility] Left: Ankle Synthes I 212.104 / / Synthes 202.212 2.7mm 2.1mm 12mm Self Tap Lock Stardrive Thread Head Profile T8 - [id number] Implanted:Qty: 2 on 04/20/2018 by Toribio Duong MD at [facility] Left: Ankle Synthes I 202.212 / / Synthes 204.814 3.5mm 6mm 14mm 2.5mm Self Tap Small Hexagonal Socket Low Profile - [id number] Implanted:Qty: 1 on 04/20/2018 by Toribio Duong MD at [facility] Left: Ankle Synthes I 204.814 / / 205.050 3.5mm Cannulated Screw Partially Threaded Implanted:Qty: 1 on 04/20/2018 by Toribio Duong MD at [facility] Left: Ankle Synthes I [id number] 205.050 [...] Read Routine (OP Routine) 05/27/2024 11:02 AM INVASIVE CARDIOVASCULAR TECHNOLOGIST Coronary artery disease of [place] artery of [place] heart with stable angina pectoris (HCC) MRI SHOULDER RIGHT WO CONTRAST Schedule Routine, Read Routine (OP Routine) 04/08/2024 1:31 PM INVASIVE CARDIOVASCULAR TECHNOLOGIST Acute pain of right shoulder Tendinitis of upper biceps tendon of right shoulder PSA SCREEN Routine 11/18/2023 10:17 AM CDT Healthcare maintenance Screening PSA (prostate specific antigen) CT ABDOMEN PELVIS W CONTRAST ED 05/10/2023 7:54 AM INVASIVE CARDIOVASCULAR TECHNOLOGIST COLONOSCOPY 04/15/2023 8:37 AM INVASIVE CARDIOVASCULAR TECHNOLOGIST HEPATITIS C ANTIBODY Routine 05/25/2020 from Last 3 Months or Most Recently Relevant to Health Maintenance Results * SCAN - LABS (06/04/2024) Provider Scanning Final Result * Cardiology Document Scan (06/04/2024) Anatomical Region Laterality Modality Other Kassie Reaves MD CV CARDIAC SERVICES PROCE [place] Edited Result - Final * CBC with auto differential (06/04/2024) Blood Finesse Juares MD LAB BLOOD ORDERABLES Erendira l Result Performing Organization Address City/[facility]/ZIP Co de Phone Number [id number] * Lipid panel (06/04/2024) SCRIBED Cholesterol, Total 121 <200 EXTERNAL LAB SCRIBED HDL 45 >40 EXTERNAL LAB SCRIBED LDL 62 <200 EXTERNAL LAB SCRIBED Triglycerides 66 <150 EXTERNAL LAB Blood 06/04/2024 Finesse Juares MD LAB BLOOD ORDERABLES Edit ed Result - Final Performing Organization Address [facility] Co de Phone Number EXTERNAL LAB * Comprehensive metabolic panel (06/04/2024) Blood Finesse Juares MD LAB BLOOD ORDERABLES Edit ed Result - Final Performing Organization Address [facility]/ZIP Co de Phone Number EXTERNAL LAB * NM MPI SPECT (Rest and/or Stress) Multiple Studies (05/27/2024 11:02 AM INVASIVE CARDIOVASCULAR TECHNOLOGIST) LV EF % CONS SCIMAGE Anatomical Region Laterality Modality Body N/A Nuclear Medicine 05/27/2024 8:08 AM INVASIVE CARDIOVASCULAR TECHNOLOGIST Narrative 05/27/2024 3:40 PM INVASIVE CARDIOVASCULAR TECHNOLOGIST [facility] Medical Group Cardiology [address] [facility] [address], [place] [address] [address] [facility] [address], [place] [address] P:[phone] P:[phone] MPI Imaging Report Patient Name: MILTON JACOBS E : 1950 Study Date: 05/27/2024 8:08:00 AM Gender: M Tech: [facility] Location: [facility] Provider: KASSIE REAVES ?Height(Cm): 172.7 BSA: ??Weight(Kg): [...] Smoker, and I25.118 Atherosclerotic heart disease of [place] coronary artery with other forms of angina [...] By: Kassie Reaves MD 05/27/2024 3:39:58 PM INVASIVE CARDIOVASCULAR TECHNOLOGIST Electronically Signed By: Kassie Reaves MD 05/27/2024 3:39:58 PM INVASIVE CARDIOVASCULAR TECHNOLOGIST Procedure Note Kassie Reaves MD - 05/27/2024 [facility] Medical Group Cardiology [address] [facility] [address], [place] [address] [address] [facility] [address], [place], [place] [address] P:[phone] P:[phone] MPI Imaging Report Patient Name: MILTON JACOBS E : 1950 Study Date: 05/27/2024 8:08:00 AM Gender: M Tech: LEANDRO GUSTAFSON Location: [facility] Provider: KASSIE REAVES Height(Cm): 172.7 BSA: Weight(Kg): [...] Former Smoker, and I25.118Atherosclerotic heart disease of [place] coronary artery with other forms of anginapectoris. [...] By: Kassie Reaves MD 05/27/2024 3:39:58 PM INVASIVE CARDIOVASCULAR TECHNOLOGIST Electronically Signed By: Kassie Reaves MD 05/27/2024 3:39:58 PM INVASIVE CARDIOVASCULAR TECHNOLOGIST us Kassie Reaves MD IMG NM PROCEDURES Final R esult * MRI Shoulder Right WO Contrast (04/08/2024 1:31 PM INVASIVE CARDIOVASCULAR TECHNOLOGIST) Anatomical Region Laterality Modality Upper Extremities Right Magnetic Reson ance 04/08/2024 3:28 PM INVASIVE CARDIOVASCULAR TECHNOLOGIST Narrative 04/08/2024 3:35 PM INVASIVE CARDIOVASCULAR TECHNOLOGIST EXAM DESCRIPTION: MRI SHOULDER RIGHT WO CONTRAST [...] restart exam because of pain; had to re-supervisor press room because position changed ?? TECHNIQUE: Multiplanar, multisequence [...] PM T: ??04/08/2024 3:35 PM Report ID: [id number] Reading Location: ??[id number] Procedure Note Brent Wilson MD - 04/08/2024 [...] restart exam because of pain; had to re-supervisor press room because position changed TECHNIQUE: Multiplanar, multisequence MRI [...] Brent Wilson M.D. JA: URIEL Report ID: [id number] Reading Location: [id number] us Stefan Obrien DO IMG MRI PROCEDURES Fin al Result * PSA screen (11/18/2023 10:17 AM CDT) PSA 0.3 0.0 - 4.0 ng/mL [facility] - 01 Comment: Kassandra ECLIA methodology. According to the [place] [employer], Serum PSA should decrease and [...] 7:11 AM CDT Performed at: ??01 - [address] ??[id number] Cancer Researcher: Bunny Mijares PhD, Phone: ??[phone] Serge Alcala MD LAB BLOOD ORDERABLES Final R esult [facility] * CT Abdomen Pelvis W Contrast (05/10/2023 7:54 AM INVASIVE CARDIOVASCULAR TECHNOLOGIST) Anatomical Region Laterality Modality Body N/A Computed Tomogra phy 05/10/2023 8:14 AM INVASIVE CARDIOVASCULAR TECHNOLOGIST Narrative 05/10/2023 8:27 AM INVASIVE CARDIOVASCULAR TECHNOLOGIST EXAM DESCRIPTION: ?? CT ABDOMEN PELVIS W [...] Electronically signed by ??Lars Morales M.D. AG: AG D: ??05/10/2023 8:27 AM T: ??05/10/2023 8:27 AM Report ID: [id number] Reading Location: ??[id number] Procedure Note Lars Morales MD - 05/10/2023 [...] Lars Morales M.D. AG: JAILYN Report ID: [id number] Reading Location: [id number] us Sung Ball MD IMG CT PROCEDURES Final Resu lt * COLONOSCOPY (04/15/2023 8:37 AM INVASIVE CARDIOVASCULAR TECHNOLOGIST) Anatomical Region Laterality Modality Other Narrative Procedure Note Jermaine Thompson MD - 04/15/2023 8:37 AM CST Digestive [facility] Patient Name: Milton Jacobs Procedure Date: 04/15/2023 8:37 AM Date of : 1950 Admit Type: Outpatient Age: 73 Gender: Male Attending MD: Jermaine Thompson M.D. Room: [facility] ENDOSCOPY ROOM 2 Note Status: Finalized Patient [...] scope was passed under direct vision. TheColonoscope [id number] was introduced through the anus and advanced [...] portion) appeared normal. Electronically signed by Jermaine Thompson M.D. Jermaine Thompson M.D. 04/15/2023 9:23:36 AM [...] history of colonic polyps CPT copyright 2020 [place] [employer]. All rights reserved. The codes documented in this report are preliminary and upon health information coder reviewmay be revised to meet current compliance requirements. Recognized by the [place] [employer] for promoting quality in endoscopy us Jermaine Thompson MD ENDOSCOPY PROCEDURES Final Re sult * Hepatitis C antibody (05/25/2020) SCRIBED HCV ab non reactive EXTERNAL LAB Blood specimen (specimen) us Historical Provider LAB MICROBIOLOGY - GENERA L ORDERABLES Final Result EXTERNAL LAB from Last 3 Months or Most Recently Relevant to Health Maintenance Insurance MEDICARE SOL[employer] [facility] MEDICARE Address: [address] [address] [place] [address] [facility] MEDICARE Address: [address] [address] [place] [address] [employer] MEDICARE GOLD Advance Directives For more information, please contact: [phone] * Full Code (Latest Code Status on File) Date Activated Date Inactivated Comments 04/15/2023 8:28 AM 04/15/2023 2:05 PM * Full Code Date Activated Date Inactivated Comments 04/15/2023 8:28 AM 04/15/2023 8:28 AM Care Teams Cable Puller Relationship Specialty Start Date End Date Finesse [place] [address] [place] [address] PCP - General Family Medicine 11/25/23
== END 2024-06-04 07:08 | disposition home or self-care (01) ==
PROVIDERS: PCP Family Medicine; Visit Provider Family Medicine
DX: E78.2 Mixed hyperlipidemia (principal)
CPT/HCPCS: 36415; 80053; 80061; 85025